=== PATIENT | male | born 1995 | race Caucasian/White ===

== ENCOUNTER 2020-07-03 12:15 | Inpatient (IN) | payer MEDICAID, OTHER ==
--- NOTE | 2020-07-03 12:30 | ED ---
General Adult HPI - General Stated complaint: EPS eval Time Seen by Provider: 07/03/20 12:15 Source: patient, RN notes reviewed, old records reviewed - History of Present Illness Initial comments: This is a 25-year-old male who presents emergency Department past medical history significant for smoking and anxiety. Patient states he just had a child was asked girlfriend and she will not let him see the child very often also is extremely upset. Patient states he took his mother's phone intact and the girlfriend that he was given overdosed to be doesn't get to see his kids. Patient states she's not really suicidal he wasn't really good overdosed but he stated that because he thought it might shock her enough that she might bring the kid around. Mother is filling out a petition the waiting room. Patient states he is not suicidal he has made no attempt today patient denies any drug use or alcohol use. Patient denies any physical complaints today. - Related Data Home Medications Medication Instructions Recorded Confirmed Albuterol Sulfate [Albuterol 1 puff PO RT-Q4H PRN 07/03/20 07/03/20 Sulfate Hfa] Beclomethasone Dipropionate [Qvar 1 puff INHALATION RT-DAILY 07/03/20 07/03/20 40 mcg Redihaler] Montelukast [Singulair] 10 mg PO DAILY 07/03/20 07/03/20 Allergies Allergy/AdvReac Type Severity Reaction Status Date / Time No Known Allergies Allergy Verified 07/03/20 12:58 Review of Systems ROS Statement: Those systems with pertinent positive or pertinent negative responses have been documented in the HPI. ROS Other: All systems not noted in ROS Statement are negative. Past Medical History Past Medical History: No Reported History History of Any Multi-Drug Resistant Organisms: None Reported Past Surgical History: Orthopedic Surgery Past Psychological History: ADD/ADHD, Anxiety, Bipolar, Depression Past Alcohol Use History: None Reported Past Drug Use History: Marijuana General Exam - General Exam Comments Initial Comments: GENERAL: Patient is well-developed and well-nourished. Patient is nontoxic and well-hydrated and is in no acute distress. ENT: Neck is soft and supple. No significant lymphadenopathy is noted. Neck has full range of motion without eliciting any pain. EYES: The sclera were anicteric and conjunctiva were pink and moist. Extraocular movements were intact and pupils were equal round and reactive to light. Eyelids were unremarkable. PULMONARY: Unlabored respirations. Good breath sounds bilaterally. No audible rales rhonchi or wheezing was noted. CARDIOVASCULAR: There is a regular rate and rhythm without any murmurs gallops or rubs. ABDOMEN: Soft and nontender with normal bowel sounds. SKIN: Skin is clear with no lesions or rashes and otherwise unremarkable. NEUROLOGIC: Patient is alert and oriented x3. Cranial nerves II through XII are grossly intact. Motor and sensory are also intact. Normal speech, volume and content. Symmetrical smile MUSCULOSKELETAL: Normal extremities with adequate strength and full range of motion. LYMPHATICS: No significant lymphadenopathy is noted PSYCHIATRIC: Normal psychiatric evaluation. Patient denies suicidal or homicidal ideations. Course Vital Signs 07/03/20 12:24 Temperature 98.2 F Pulse Rate 110 H Respiratory 18 Rate Blood Pressure 142/94 O2 Sat by Pulse 96 Oximetry Medical Decision Making - Medical Decision Making The psychiatric nurse evaluated the patient and determined the patient needed to be admitted I filled out a clinical certification for the person's admission. Disposition Clinical Impression: Depression, Suicide attempt Disposition: ADMITTED IP TO THIS HOSP Referrals: Kasia Wilkerson MD [Primary Care Provider] - 1-2 days Time of Disposition: 15:35
[2020-07-03 15:52] LABS: Amphetamine Screen,Urine Detected (NotDetected); Barbiturate Screen,Urine Not Detected (NotDetected); Benzodiazepines Screen,Urine Not Detected (NotDetected); Cocaine Screen,Urine Not Detected (NotDetected); Methadone Screen, Urine Not Detected (NotDetected); Opiate Screen,Urine Detected (NotDetected); Oxycodone Screen, Urine Not Detected (NotDetected); Phencyclidine Screen,Urine Not Detected (NotDetected); Tricyclic Antidepressant,Urine Not Detected (NotDetected); Urn Cannabinoid Scrn Not Detected (NotDetected)
[2020-07-03] MEDS ORDERED: ALBUTEROL INHALER 60 PUFF/8 GM INHALER (MHU) INHALATION PRN (18:27)
[2020-07-03] MEDS ORDERED: MAGNESIUM HYDROXIDE 2,400 MG/10 ML CUP PO PRN (18:29)
[2020-07-03] MEDS ORDERED: MAG HYDROX/AL HYDROX/SIMETH 30 ML CUP PO PRN (18:29)
[2020-07-03] MEDS ORDERED: ACETAMINOPHEN TAB 325 MG TAB PO PRN (18:29)
[2020-07-03] MEDS ORDERED: LORazepam 1 MG TAB PO PRN (18:35)
[2020-07-03] MEDS ORDERED: ZIPRASIDONE 20 MG VIAL IM PRN (18:35)
[2020-07-03] MEDS ORDERED: LORazepam 2 MG/ML INJ IM PRN (18:41)
[2020-07-03] MEDS: NICOTINE 14MG/24HR PATCH TRANSDERM SCH (19:10)
[2020-07-04 00:49] VITALS: RESP 16
[2020-07-04] MEDS: NICOTINE 14MG/24HR PATCH TRANSDERM SCH (09:33)
[2020-07-04] MEDS: FLUTICASONE 44 MCG INHALATION SCH (09:33)
[2020-07-04] MEDS: MONTELUKAST 10 MG TAB PO SCH (09:34)
[2020-07-04 10:23] LABS: Basophils # (A) 0.1 k/uL (0-0.2); Basophils % (A) 1 %; Eosinophils # (A) 0.2 k/uL (0-0.7); Eosinophils % (A) 3 %; HCT 43.9 % (39.0-53.0); HGB 14.2 gm/dL (13.0-17.5); Lymphocytes # (A) 2.6 k/uL (1.0-4.8); Lymphocytes % (A) 33 %; MCH 29.9 pg (25.0-35.0); MCHC 32.3 g/dL (31.0-37.0); MCV 92.5 fL (80.0-100.0); Mean Platelet Volume 7.3; Monocytes # (A) 0.7 k/uL (0-1.0); Monocytes % (A) 9 %; Neutrophils # (A) 4.3 k/uL (1.3-7.7); Neutrophils % (A) 53 %; Platelet Count 228 k/uL (150-450); RBC 4.74 m/uL (4.30-5.90); RDW 12.5 % (11.5-15.5); WBC 8.1 k/uL (3.8-10.6)
[2020-07-04 10:26] LABS: Cholesterol 123 mg/dL (<200); HDL Cholesterol 24 mg/dL (40-60); LDL Cholesterol,Calculated 77 mg/dL (0-99); Triglycerides 109 mg/dL (<150)
[2020-07-04 10:47] LABS: ALT 15 U/L (4-49); AST 21 U/L (17-59); African American GFR (CKD) >90 (>60 ml/min/1.73 sqM); Albumin 4.3 g/dL (3.5-5.0); Alkaline Phosphatase 76 U/L (38-126); Anion Gap 10 mmol/L; Blood Urea Nitrogen 10 mg/dL (9-20); Calcium 9.3 mg/dL (8.4-10.2); Carbon Dioxide 27 mmol/L (22-30); Chloride 100 mmol/L (98-107); Glucose 171 mg/dL (74-99); Non-African American GFR(CKD) >90 (>60 ml/min/1.73 sqM); Potassium 3.8 mmol/L (3.5-5.1); Sodium 137 mmol/L (137-145); Total Bilirubin 0.7 mg/dL (0.2-1.3); Total Protein 6.7 g/dL (6.3-8.2)
--- NOTE | 2020-07-04 14:25 | P.HP ---
Psychiatric H&P - . H&P Date: 07/04/20 History & Physical: Allergies Allergy/AdvReac Type Severity Reaction Status Date / Time No Known Allergies Allergy Verified 07/03/20 12:58 Vital Signs Temp 99.0 F 07/04/20 00:48 Pulse 106 H 07/04/20 00:48 Resp 16 07/04/20 00:48 BP 108/56 07/04/20 00:48 Pulse Ox 96 07/03/20 12:24 Intake & Output 07/03/20 07/04/20 07/04/20 18:59 06:59 18:59 Weight 72.575 kg Laboratory Last Values WBC 8.1 k/uL (3.8-10.6) 07/04/20 09:27 RBC 4.74 m/uL (4.30-5.90) 07/04/20 09:27 Hgb 14.2 gm/dL (13.0-17.5) 07/04/20 09:27 Hct 43.9 % (39.0-53.0) 07/04/20 09:27 MCV 92.5 fL (80.0-100.0) 07/04/20 09:27 MCH 29.9 pg (25.0-35.0) 07/04/20 09:27 MCHC 32.3 g/dL (31.0-37.0) 07/04/20 09:27 RDW 12.5 % (11.5-15.5) 07/04/20 09:27 Plt Count 228 k/uL (150-450) 07/04/20 09:27 Neutrophils % 53 % 07/04/20 09:27 Lymphocytes % 33 % 07/04/20 09:27 Monocytes % 9 % 07/04/20 09:27 Eosinophils % 3 % 07/04/20 09:27 Basophils % 1 % 07/04/20 09:27 Neutrophils # 4.3 k/uL (1.3-7.7) 07/04/20 09:27 Lymphocytes # 2.6 k/uL (1.0-4.8) 07/04/20 09:27 Monocytes # 0.7 k/uL (0-1.0) 07/04/20 09:27 Eosinophils # 0.2 k/uL (0-0.7) 07/04/20 09:27 Basophils # 0.1 k/uL (0-0.2) 07/04/20 09:27 Sodium 137 mmol/L (137-145) 07/04/20 09: Potassium 3.8 mmol/L (3.5-5.1) 07/04/20 09: Chloride 100 mmol/L (98-107) 07/04/20 09: Carbon Dioxide 27 mmol/L (22-30) 07/04/20: Anion Gap 10 mmol/L 07/04/20:27 BUN 10 mg/dL (9-20) 07/04/20 09: Creatinine 0.80 mg/dL (0.66-1.25) 07/04/20 09: Est GFR (CKD-EPI)AfAm >90 (>60 ml/min/1.73 sqM) 07/04/20: Est GFR (CKD-EPI)NonAf >90 (>60 ml/min/1.73 sqM) 07/04/20 09: Glucose 171 mg/dL (74-99) H 07/04/20 09: Calcium 9.3 mg/dL (8.4-10.2) 07/04/20 09: Total Bilirubin 0.7 mg/dL (0.2-1.3) 07/04/20: AST 21 U/L (17-59) 07/04/20: ALT 15 U/L (4-49) 07/04/20 09: Alkaline Phosphatase 76 U/L (38-126) 07/04/20 09: Total Protein 6.7 g/dL (6.3-8.2) 07/04/20 09: Albumin 4.3 g/dL (3.5-5.0) 07/04/20 09: Triglycerides 109 mg/dL (<150) 07/04/20 09: Cholesterol 123 mg/dL (<200) 07/04/20: LDL Cholesterol, Calc 77 mg/dL (0-99) 07/04/20: HDL Cholesterol 24 mg/dL (40-60) L 07/04/20 09: TSH 0.273 mIU/L (0.465-4.680) L 07/04/20: Urine Opiates Screen Detected (NotDetected) H 07/03/20 15:14 Ur Oxycodone Screen Not Detected (NotDetected) 07/03/20 15:14 Urine Methadone Screen Not Detected (NotDetected) 07/03/20 15:14 Ur Propoxyphene Screen Not Detected (NotDetected) 07/03/20 15:14 Ur Barbiturates Screen Not Detected (NotDetected) 07/03/20 15:14 U Tricyclic Antidepress Not Detected (NotDetected) 07/03/20 15:14 Ur Phencyclidine Scrn Not Detected (NotDetected) 07/03/20 15:14 Ur Amphetamines Screen Detected (NotDetected) H 07/03/20 15:14 U Methamphetamines Scrn Detected (NotDetected) H 07/03/20 15:14 U Benzodiazepines Scrn Not Detected (NotDetected) 07/03/20 15:14 Urine Cocaine Screen Not Detected (NotDetected) 07/03/20 15:14 U Marijuana (THC) Screen Not Detected (NotDetected) 07/03/20 15:14 07/04/20 14:00 IDENTIFYING DATA: Patient is a 25-year-old male who currently lives with his mother in a house with siblings and is single and currently has a 2-month-old child with his girlfriend. 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 HPI: Patient presented to the hospital yesterday on a petition by patient's mother who stated that patient was "upset yelling and crying" and also stated that he had "tried to overdose but was not successful and stated that he was going to kill himself and we would find a note". Patient apparently told the ER that he had threatened to overdose and admitted that he was "trying to shock her" into letting him see his child. He apparently has been sober since August however had relapsed recently and his UDS was positive for methamphetamines and opiates. Patient was seen today in his room and claimed to be "tired" and states that he was withdrawing from heroin. He appears to have poor hygiene and grooming today. He explained the situation that his girlfriend called the police on him and that he had no intent of harming himself and wanted to see his child. He states that "it's all a joke I'm in the hospital because of a joke". He minimizes his depression and his symptoms and states that he is doing "all right". He admits to anxiety at times and claims that he slept excessively last night however usually does not sleep well. He claims that he relapsed on heroin using 1 pack 2 days ago and had been sober for 9 months. He states that he also used methamphetamine "a small bed" at that time to "wake myself up after using too much heroin". Patient denies any suicidal or homicidal ideations intent or plan. At this time patient denies any auditory or visual hallucinations. Patient denies any flight of ideas racing thoughts and increased in goal directed behavior. Patient admits to using recreational drugs as noted above and smokes cigarettes. PAST PSYCHIATRIC HISTORY: Patient states that he has a history of depression. Patient denies being on any psychiatric medications. Patient denies any previous psychiatric hospitalizations. Patient states that he used to see a psychiatrist and counselor as a child because "it was court ordered". Patient had an appointment with [facility] yesterday however did not show for the appointment. Patient denies any history of suicide attempts in the past. PMH: Asthma ALLERGIES: as per EMR CHEMICAL DEPENDENCY HISTORY: as per HPI FAMILY PSYCHIATRIC/SUBSTANCE USE HISTORY: denies SOCIAL HISTORY: Patient was born and raised in [place] and claims that he now lives in [place]. 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 He states that he lives with his mother and siblings and is single and has a 2-month-old child with his girlfriend. MENTAL STATUS EXAM: General Appearance: Patient appears to be stated age is alert, irritable and uncooperative/evasive. Patient appears to have poor hygiene and grooming. Behavior: Patient is seated without any agitated behavior. Guarded/evasive. Speech: Patient's speech is fluent and nonpressured. [place]. Mood/Affect: Patient reports their mood is "ok", affect is incongruent and constricted. Suicidality/Homicidality: Patient denies having any homicidal ideation intent or plan. Denies any suicidal ideations intent or plan Perceptions: Patient denies any visual hallucinations and denies any auditory hallucinations Though content/process: There is no evidence of any delusional thought content and thought process is linear and goal-directed. Minimizing his symptoms and situation. [place] Memory and concentration: AOX3, grossly intact for the purposes of this session. Can spell "WORLD" backwards Judgment and insight: poor/impulsive STRENGTHS/WEAKNESSES: strength is that patient is resilient. Weakness is that patient has poor judgment and is impulsive INTELLECT: average IMPRESSIONS: Major depressive disorder, without psychotic features Opiate abuse Methamphetamine abuse Nicotine dependence PLAN: -Patient is admitted under involuntary status to [facility] for stabilization of psyc hiatric symptoms and safety. Patient signed medication consent and is placed in patient's chart. A second certification was completed and along with petition will be filed for court. -Medications : Will start patient on Zoloft 50 mg daily for mood/anxiety, trazodone 50 mg daily at bedtime for insomnia/mood. -Ativan and Geodon PRN for agitation/aggression -Patient was counselled on substance abuse and desired to cut back on use. -Patient was informed of the risks, benefits and side effects of the medication and patient verbally consented to taking the medications. Patient signed med consent form and was placed in chart. -Internal Medicine consult to perform medical evaluation and physical. -NRT - nicotine patch -SW on board for discharge planning. Encourage patient to participate in groups to work on coping skills. Spoke with patient about rehab however patient declined rehab or any other substance treatment options 07/04/20 14:21 07/04/20 14:25
[2020-07-04] MEDS: SERTRALINE 50 MG TAB PO SCH (14:34)
[2020-07-04 20:11] LABS: Hemoglobin A1C 5.6 % (4.0-6.0)
[2020-07-04] MEDS: traZODone HCL 50 MG TAB PO SCH (21:49)
--- NOTE | 2020-07-05 02:01 | P.MDCNMH ---
History of Present Illness H&P Date: 07/04/20 Chief Complaint: Suicidal ideation Patient is a 25-year-old male with a known history of ADD/ADHD, anxiety/bipolar disorder and depression and marijuana use and history of asthma presents to ER due to anxiety and overdose. Patient is upset that his girlfriend will not let him to see the child very often. Patient does not want really commit suicide but thought it might shock her enough that she might bring the kids around. Patient was petitioned by her mother. Otherwise patient denied any complaints of chest pain or shortness of breath. No nausea vomiting abdominal pain or diarrhea. No dysuria or hematuria. Laboratory data showed TSH level is 0.273 free T4 level is pending. UDS is positive for opiates and amphetamines and methamphetamine. Patient has been afebrile. Patient was tachycardic on admission. Review of Systems Constitutional: Patient denies any fever or chills . No generalized weakness or weight loss. Abdomen: Patient denied nausea vomiting and diarrhea and abdominal pain. Cardiovascular: Patient denies any chest pain or short of breath no palpitations. Respiratory: patient denied any cough is from production. No shortness of breath Neurologic: Patient denied any numbness or tingling headache. Musculoskeletal: Patient denies any complaints of joint swelling or deformity. Skin: Negative Psychiatric: Negative Endocrine: No heat or cold intolerance. No recent weight gain. Genitourinary: No dysuria or hematuria. All other 14 point ROS negative except the above Past Medical History Past Medical History: No Reported History History of Any Multi-Drug Resistant Organisms: None Reported Past Surgical History: Orthopedic Surgery Past Psychological History: ADD/ADHD, Anxiety, Bipolar, Depression Past Alcohol Use History: None Reported Past Drug Use History: Marijuana Medications and Allergies Home Medications Medication Instructions Recorded Confirmed Type Albuterol Sulfate [Albuterol 1 puff PO RT-Q4H PRN 07/03/20 07/03/20 History Sulfate Hfa] Beclomethasone Dipropionate [Qvar 1 puff INHALATION RT-DAILY 07/03/20 07/03/20 History 40 mcg Redihaler] Montelukast [Singulair] 10 mg PO DAILY 07/03/20 07/03/20 History Allergies Allergy/AdvReac Type Severity Reaction Status Date / Time No Known Allergies Allergy Verified 07/03/20 12:58 Physical Exam Vitals: Vital Signs Temp Pulse Resp BP 07/04/20 00:48 99.0 F 106 H 16 108/56 07/03/20 19:01 98.8 F 100 20 117/63 PHYSICAL EXAMINATION: Patient is lying in the bed comfortably, no acute distress, awake alert and oriented.. HEENT: Normocephalic. Neck is supple. Pupils reactive. Nostrils clear. Oral cavity is moist. Ears reveal no drainage. Neck reveals no JVD, carotid bruits, or thyromegaly. CHEST EXAMINATION: Trachea is central. Symmetrical expansion. Lung talamantes clear to auscultation and percussion. CARDIAC: Normal S1, S2 with no gallops. No murmurs ABDOMEN: Soft. Bowel sounds normal. No organomegaly. No abdominal bruits. Extremities: reveal no edema. No clubbing or cyanosis Neurologically awake, alert, oriented x3 with well-coordinated movements. No focal deficits noted Skin: No rash or skin lesions. Psychiatric: Coperative. Nonsuicidal Musculoskeletal: No joint swelling or deformity. Normal range of motion. Cranial Nerve Examination - Cranial Nerves Cranial Nerve I- Olfactory: Intact Cranial Nerve II- Optic: Intact Cranial Nerve III- Oculomotor: Intact Cranial Nerve IV- Trochlear: Intact Cranial Nerve V- Trigeminal: Intact Cranial Nerve - Abducens: Intact Cranial Nerve VII- Facial: Intact Cranial Nerve VIII- Auditory: Intact Cranial Nerve IX- Glossopharyngeal: Intact Cranial Nerve X- Vagus: Intact Cranial Nerve XI- Accessory: Intact Cranial Nerve XII- Hypoglossal: Intact Results CBC & Chem 7: 07/04/20 09:27 07/04/20 09:27 Labs: Abnormal Lab Results - Last 24 Hours (Table) 07/04/20 Range/Units 09:27 Glucose 171 H (74-99) mg/dL HDL Cholesterol 24 L (40-60) mg/dL TSH 0.273 L (0.465-4.680) mIU/L Assessment and Plan Assessment: Acute suicidal ideation Polysubstance abuse ADD/ADHD Anxiety/depression and bipolar disorder History of marijuana use Asthma not in exacerbation Plan: Patient will be continued on current psychiatric medications and management. Breathing treatments as needed. Monitor for withdrawal symptoms. Patient has been counseled extensively. Further recommendations based on clinical course. Thank you for your consult.
[2020-07-05 05:58] LABS: T4, Free (Free Thyroxine) 1.28 ng/dL (0.78-2.19)
[2020-07-05] MEDS: FLUTICASONE 44 MCG INHALATION SCH (10:07)
[2020-07-05] MEDS: MONTELUKAST 10 MG TAB PO SCH (10:08)
[2020-07-05] MEDS: SERTRALINE 50 MG TAB PO SCH (10:08)
[2020-07-05] MEDS: NICOTINE 14MG/24HR PATCH TRANSDERM SCH (10:08)
--- NOTE | 2020-07-05 13:01 | P.PN ---
Progress Note - Text Progress Note Date: 07/05/20 Interval History: Patient was seen laying down in his bed today and was directable and agreeable to speak with curriculum writer in the office. He shouldn't appear to have mildly improved hygiene and grooming today. He appears to have a mild improvement in his affect and was more cooperative with curriculum writer today. He continues to be guarded and concrete in his answers. He states that he has not gone to many groups so far however was encouraged to do so. He states that he's feeling "fine". He claims that he will be speaking with his girlfriend and mother over the phone today to update them on his care. He mentioned that he would be willing to go to rehab and will be given the number to call today. He states that he does not have any anxiety today. He claims that he has mild withdrawal symptoms from his opiate use however was vague about what they were. He states he was able to sleep better last night approximately 6-7 hours and has a fair appetite today. At this time patient denies any suicidal or homical ideations, intent or plan. Patient denies any auditory, visual hallucinations and denies any paranoia or delusions. Patient denies any side effects from the medications and has been compliant with meds. Mental Status Exam: General Appearance: Patient appears to be stated age is alert, irritable and uncooperative/evasive. Patient appears to have poor hygiene and grooming. Behavior: Patient is seated without any agitated behavior. Guarded/evasive. Speech: Patient's speech is fluent and nonpressured. [place]. Mood/Affect: Patient reports their mood is "ok", affect is incongruent and constricted. Suicidality/Homicidality: Patient denies having any homicidal ideation intent or plan. Denies any suicidal ideations intent or plan Perceptions: Patient denies any visual hallucinations and denies any auditory hallucinations Though content/process: There is no evidence of any delusional thought content and thought process is linear and goal-directed. Minimizing his symptoms and situation. [place] Memory and concentration: AOX3, grossly intact for the purposes of this session Judgment and insight: poor/impulsive, improving midly Assessment Major depressive disorder, without psychotic features Opiate abuse Methamphetamine abuse Nicotine dependence Plan: -Patient continues to meet criteria for inpatient psychiatric admission for symptom stabilization and safety. Currently awaiting deferral and court date. -Medications: Continue with Zoloft 50 mg daily for mood/anxiety, continue with trazodone 50 mg nightly for insomnia/mood. -When necessary Ativan and Geodon for agitation/aggression. -NRT - nicotine patch -SW on board for discharge planning. Encouraged the patient to participate in milieu. Spoke with patient again today about rehab and patient is willing to go at this time and will be given number by older adult social work specialist to call the access line. Currently awaiting deferral and court date. Likely discharge in 1-2 days.
[2020-07-05] MEDS: traZODone HCL 50 MG TAB PO SCH (21:03)
[2020-07-06 01:26] VITALS: BP 130/75; PULSE 91; TEMP 98.6
[2020-07-06] MEDS: NICOTINE 14MG/24HR PATCH TRANSDERM SCH (09:59)
[2020-07-06] MEDS: SERTRALINE 50 MG TAB PO SCH (09:59)
[2020-07-06] MEDS: MONTELUKAST 10 MG TAB PO SCH (09:59)
--- NOTE | 2020-07-06 11:37 | P.PN ---
Progress Note - Text Progress Note Date: 07/06/20 Interval History: Patient was seen laying down in his bed today and was directable and agreeable to speak with mortgage or loan underwriter in the office. He appears to have mildly improved hygiene and grooming today. He continues to have superficial insight and judgment and denied any overly complaints. Patient was asking about possible discharge today back home. He claims that he has been taking his medications and states that it is helping his mood. He continues to be guarded and concrete in his answers. He states that he has gone to some groups however was not able to elaborate much on them. He states that he's feeling "ok today". He mentioned that he receive the number for the access line from the social security specialist however states that he lost a number and didn't call however was willing to take the number once again today and call. He states that he does not have any anxiety today. He states he was able to sleep better last night approximately 6-7 hours and has a fair appetite today. At this time patient denies any suicidal or homical ideations, intent or plan. Patient denies any auditory, visual hallucinations and denies any paranoia or delusions. Patient denies any side effects from the medications and has been compliant with meds. Mental Status Exam: General Appearance: Patient appears to be stated age is alert, more directable today and more cooperative. Patient appears to have improving hygiene and grooming. Behavior: Patient is seated without any agitated behavior. Guarded/evasive, improving mildly Speech: Patient's speech is fluent and nonpressured. [place]. Mood/Affect: Patient reports their mood is "ok today", affect is congruent and constricted. Suicidality/Homicidality: Patient denies having any homicidal ideation intent or plan. Denies any suicidal ideations intent or plan Perceptions: Patient denies any visual hallucinations and denies any auditory hallucinations Though content/process: There is no evidence of any delusional thought content and thought process is linear and goal-directed. [place], superficial at times. Memory and concentration: AOX3, grossly intact for the purposes of this session Judgment and insight: poor, improving midly Assessment Major depressive disorder, without psychotic features Opiate abuse Methamphetamine abuse Nicotine dependence Plan: -Patient continues to meet criteria for inpatient psychiatric admission for symptom stabilization and safety. Patient signed deferral for court. -Medications: Continue with Zoloft 50 mg daily for mood/anxiety, continue with trazodone 50 mg nightly for insomnia/mood. -When necessary Ativan and Geodon for agitation/aggression. -NRT - nicotine patch -SW on board for discharge planning. Encouraged the patient to participate in milieu. agricultural service worker spoke with patient's mother on the phone who states that she is not willing to take patient back home today upon discharge and that she needs to go to rehab before coming back to the house. Patient will be given the number for the access line once again today for inpatient rehab. Patient signed deferral for court.
--- NOTE | 2020-07-06 13:00 | P.DS ---
Providers Date of admission: 07/03/20 18:17 Expected date of discharge: 07/06/20 Attending physician: Ever Ross MD Consults: 07/03/20 18:35 Consult Physician Routine Consulting Provider: Valente Ervin Consult Reason/Comments: H&P and medical Do you want consulting provider notified?: Yes Primary care physician: Kasia Wilkerson - Discharge Diagnosis(es) (1) Major depressive disorder without psychotic features Current Visit: Yes Status: Acute Priority: High (2) Opiate abuse, episodic Current Visit: Yes Status: Acute Priority: Medium (3) Methamphetamine abuse Current Visit: Yes Status: Acute Priority: Medium (4) Nicotine dependence Current Visit: Yes Status: Acute Priority: Low Hospital Course: Admission HPI: Patient is a 25-year-old male who currently lives with his mother in a house with siblings and is single and currently has a 2-month-old child with his girlfriend. 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 Patient presented to the hospital yesterday on a petition by patient's mother who stated that patient was "upset yelling and crying" and also stated that he had "tried to overdose but was not successful and stated that he was going to kill himself and we would find a note". Patient apparently told the ER that he had threatened to overdose and admitted that he was "trying to shock her" into letting him see his child. He apparently has been sober since August however had relapsed recently and his UDS was positive for methamphetamines and opiates. Patient was seen today in his room and claimed to be "tired" and states that he was withdrawing from heroin. He appears to have poor hygiene and grooming today. He explained the situation that his girlfriend called the police on him and that he had no intent of harming himself and wanted to see his child. He states that "it's all a joke I'm in the hospital because of a joke". He minimizes his depression and his symptoms and states that he is doing "all right". He admits to anxiety at times and claims that he slept excessively last night however usually does not sleep well. He claims that he relapsed on heroin using 1 pack 2 days ago and had been sober for 9 months. He states that he also used methamphetamine "a small bed" at that time to "wake myself up after using too much heroin". Patient denies any suicidal or homicidal ideations intent or plan. At this time patient denies any auditory or visual hallucinations. Patient denies any flight of ideas racing thoughts and increased in goal directed behavior. Patient admits to using recreational drugs as noted above and smokes cigarettes. Hospital course: Upon admission to the unit patient was initially irritable and depressed and had poor hygiene and grooming. Patient was involuntary on a petition and certificate a second certificate was completed and patient ended up deferring court. Patient was however directable and agreeable to commence treatment. Patient got along well with other patients on the unit and followed unit protocol. Patient was compliant with the medications and denied any side effects throughout hospital course. Patient was started on Zoloft 50 mg daily for mood/anxiety and also started on trazodone 50 mg daily at bedtime for insomnia/mood. Patient spoke of his stressors and engaged in therapy both group and individual. Patient was also seen by medical team for history and physical exam. Throughout the course of the hospitalization patient gradually improved with regards to mood, anxiety, sleep and became more future oriented with improved insight and judgment. On the day of discharge patient denied any suicidal or homicidal ideations intent or plan denied any auditory or visual hallucinations. Patient endorsed wanting to live for his sobriety and his family. The patient denied any access to guns or weapons. Patient denied any paranoia and did not endorse any delusions. Patient does have a significant history of substance abuse and was counseled on abstaining from all substances including alcohol and marijuana. Patient was able to call the access line for rehab and ended up being accepted at [facility] due to him being on probation. Patient was also counseled on the medications and need for regular compliance and was encouraged to follow-up with their outpatient appointment for mental health and also for primary care. Prior to discharge a family meeting will be arranged by social service liaison to answer any questions and ensure safety upon discharge. Mental status exam: General Appearance: Patient appears to be stated age is alert, pleasant, and cooperative. Patient is in no acute distress and has fair hygiene and grooming Behavior: Patient is calmly seated without any agitated behavior. More cooperative today. Speech: Patient's speech is fluent and nonpressured. Mood/Affect: Patient reports their mood is "better", affect is congruent and euthymic. Suicidality/Homicidality: Patient denies having any suicidal or homicidal ideation intent or plan. Perceptions: Patient denies any auditory or visual hallucinations. Though content/process: There is no evidence of any delusional thought content and thought process is linear and goal-directed. more future oriented and spoke about his sobriety and getting back to work. Memory and concentration: AOX3, grossly intact for the purposes of this session. Can spell "WORLD" backwards correctly. Judgment and insight: Improved with guarded prognosis Impression: Major depressive disorder, without psychotic features Opiate abuse Methamphetamine abuse Nicotine dependence Plan: -Continue with discharge today as patient has improved and stabilized psychiatrically and is not currently an imminent threat to himself and/or others. Patient will remain at chronically elevated risk for harm to self and/or others due to his impulsivity and polysubstance abuse. -Continue medications: Continue with Zoloft 50 mg daily for mood/anxiety, trazodone 50 mg nightly for insomnia/mood. -Patient was counseled on the need for medication compliance and appropriate follow-up at mental health and also primary care for medical issues. Patient verbalized understanding and agreed. -Social work to arrange for and conduct family meeting to ensure safety upon discharge and answer any questions/concerns. Social work also to arrange for patients follow up appointments with [facility] for psychiatric care along with follow up with primary care provider. -Patient counseled on abstaining from recreational drugs and marijuana and alcohol. Was informed/educated on the adverse effects on their physical and mental health. Patient verbally agreed and understood. Patient will be going to [facility] upon dischrage three-quarter house as patient's mother will not allow him to come back to the house without going through rehab or drug treatment. -Patient was instructed to return to the hospital or seek immediate medical care if their psychiatric or medical symptoms do worsen or reoccur. Allergies Allergy/AdvReac Type Severity Reaction Status Date / Time No Known Allergies Allergy Verified 07/03/20 12:58 Laboratory Results WBC 8.1 k/uL (3.8-10.6) 07/04/20 09:27 RBC 4.74 m/uL (4.30-5.90) 07/04/20 09:27 Hgb 14.2 gm/dL (13.0-17.5) 07/04/20 09:27 Hct 43.9 % (39.0-53.0) 07/04/20: MCV 92.5 fL (80.0-100.0) 07/04/20: MCH 29.9 pg (25.0-35.0) 07/04/20: MCHC 32.3 g/dL (31.0-37.0) 07/04/20: RDW 12.5 % (11.5-15.5) 07/04/20: Plt Count 228 k/uL (150-450) 07/04/20: Neutrophils % 53 % 07/04/20: Lymphocytes % 33 % 07/04/20: Monocytes % 9 % 07/04/20: Eosinophils % 3 % 07/04/20: Basophils % 1 % 07/04/20: Neutrophils # 4.3 k/uL (1.3-7.7) 07/04/20: Lymphocytes # 2.6 k/uL (1.0-4.8) 07/04/20 09: Monocytes # 0.7 k/uL (0-1.0) 07/04/20 09: Eosinophils # 0.2 k/uL (0-0.7) 07/04/20: Basophils # 0.1 k/uL (0-0.2) 07/04/20 09: Sodium 137 mmol/L (137-145) 07/04/20 09: Potassium 3.8 mmol/L (3.5-5.1) 07/04/20: Chloride 100 mmol/L (98-107) 07/04/20: Carbon Dioxide 27 mmol/L (22-30) 07/04/20: Anion Gap 10 mmol/L 07/04/20: BUN 10 mg/dL (9-20) 07/04/20 09: Creatinine 0.80 mg/dL (0.66-1.25) 07/04/20 09: Est GFR (CKD-EPI)AfAm >90 (>60 ml/min/1.73 sqM) 07/04/20 09: Est GFR (CKD-EPI)NonAf >90 (>60 ml/min/1.73 sqM) 07/04/20 09: Glucose 171 mg/dL (74-99) H 07/04/20 09: Estimated Ave Glu mg/dL 114 07/04/20 09: Hemoglobin A1c 5.6 % (4.0-6.0) 07/04/20: Calcium 9.3 mg/dL (8.4-10.2) 07/04/20: Total Bilirubin 0.7 mg/dL (0.2-1.3) 07/04/20: AST 21 U/L (17-59) 07/04/20: ALT 15 U/L (4-49) 07/04/20: Alkaline Phosphatase 76 U/L (38-126) 07/04/20: Total Protein 6.7 g/dL (6.3-8.2) 07/04/20: Albumin 4.3 g/dL (3.5-5.0) 07/04/20: Triglycerides 109 mg/dL (<150) 07/04/20: Cholesterol 123 mg/dL (<200) 07/04/20: LDL Cholesterol, Calc 77 mg/dL (0-99) 07/04/20: HDL Cholesterol 24 mg/dL (40-60) L 07/04/20: TSH 0.273 mIU/L (0.465-4.680) L 07/04/20: Free T4 1.28 ng/dL (0.78-2.19) 07/04/20: Free T3 pg/mL 4.5 pg/ml (2.8-5.3) 07/04/20 09:27 Urine Opiates Screen Detected (NotDetected) H 07/03/20 15:14 Ur Oxycodone Screen Not Detected (NotDetected) 07/03/20 15:14 Urine Methadone Screen Not Detected (NotDetected) 07/03/20 15:14 Ur Propoxyphene Screen Not Detected (NotDetected) 07/03/20 15:14 Ur Barbiturates Screen Not Detected (NotDetected) 07/03/20 15:14 U Tricyclic Antidepress Not Detected (NotDetected) 07/03/20 15:14 Ur Phencyclidine Scrn Not Detected (NotDetected) 07/03/20 15:14 Ur Amphetamines Screen Detected (NotDetected) H 07/03/20 15:14 U Methamphetamines Scrn Detected (NotDetected) H 07/03/20 15:14 U Benzodiazepines Scrn Not Detected (NotDetected) 07/03/20 15:14 Urine Cocaine Screen Not Detected (NotDetected) 07/03/20 15:14 U Marijuana (THC) Screen Not Detected (NotDetected) 07/03/20 15:14 Vital Signs Temp 98.6 F 07/06/20 01:25 Pulse 91 07/06/20 01:25 Resp 16 07/06/20 01:25 BP 130/75 07/06/20 01:25 Pulse Ox 96 07/03/20 12:24 Patient Condition at Discharge: Stable Plan - Discharge Summary New Discharge Prescriptions: New traZODone HCL [Desyrel] 50 mg PO HS 30 Days tab Fluticasone Propionate 44 Mcg [Flovent 44 Mcg Inhaler (Mhu)] 1 puff INHALATION RT-DAILY #1 puff Nicotine 14Mg/24Hr Patch [Habitrol] 1 patch TRANSDERM DAILY 14 Days patch Montelukast [Singulair] 10 mg PO DAILY 30 Days tab Acetaminophen Tab [Tylenol] 650 mg PO Q4HR PRN tab PRN Reason: Pain/Discomfort Sertraline [Zoloft] 50 mg PO DAILY 30 Days tab Continue Montelukast [Singulair] 10 mg PO DAILY Albuterol Sulfate [Albuterol Sulfate Hfa] 1 puff PO RT-Q4H PRN PRN Reason: Shortness Of Breath Discontinued Beclomethasone Dipropionate [Qvar 40 mcg Redihaler] 1 puff INHALATION RT- DAILY Discharge Medication List Albuterol Sulfate [Albuterol Sulfate Hfa] 1 puff PO RT-Q4H PRN 07/03/20 [History] Montelukast [Singulair] 10 mg PO DAILY 07/03/20 [History] Acetaminophen Tab [Tylenol] 650 mg PO Q4HR PRN tab 07/06/20 [Rx] Fluticasone Propionate 44 Mcg [Flovent 44 Mcg Inhaler (Mhu)] 1 puff INHALATION RT-DAILY #1 puff 07/06/20 [Rx] Montelukast [Singulair] 10 mg PO DAILY 30 Days tab 07/06/20 [Rx] Nicotine 14Mg/24Hr Patch [Habitrol] 1 patch TRANSDERM DAILY 14 Days patch 07/06/20 [Rx] Sertraline [Zoloft] 50 mg PO DAILY 30 Days tab 07/06/20 [Rx] traZODone HCL [Desyrel] 50 mg PO HS 30 Days tab 07/06/20 [Rx] Follow up Appointment(s)/Referral(s): Kasia Wilkerson MD [Primary Care Provider] - 1-2 days Patient Instructions/Handouts: Suicide Prevention (DC) Discharge Disposition: OTHER INSTITUTION NOT DEFINED
== END 2020-07-06 13:50 | disposition home or self-care (01) | DRG 881 ==
LOC: EC 12:15 → 3MHU 18:17
PROVIDERS: ADMIT Psychiatry & Neurology Psychiatry; ATTEND Psychiatry & Neurology Psychiatry
DX: F32.9 Major depressive disorder, single episode, unspecified (principal); R45.851 Suicidal ideations; F11.10 Opioid abuse, uncomplicated; F15.10 Other stimulant abuse, uncomplicated; F90.9 Attention-deficit hyperactivity disorder, unspecified type; G47.00 Insomnia, unspecified; J45.909 Unspecified asthma, uncomplicated; F41.9 Anxiety disorder, unspecified; F17.210 Nicotine dependence, cigarettes, uncomplicated; Z79.51 Long term (current) use of inhaled steroids; Z79.899 Other long term (current) drug therapy; Z71.51 Drug abuse counseling and surveillance of drug abuser
CPT/HCPCS: 80053; 80061; 80306; 82075; 83036; 84439; 84443; 84481; 85025; 99285

== ENCOUNTER 2021-01-17 14:08 | Emergency (ER) | payer MEDICAID, OTHER ==
[2021-01-17 14:13] VITALS: RESP 18
[2021-01-17] MEDS ORDERED: SODIUM CHLORIDE 0.9% 1,000 ML IV STA (14:20)
[2021-01-17 14:50] LABS: Appearance,Urine Clear (Clear); Bilirubin,Urine Negative (Negative); Blood,Urine Negative (Negative); Color,Urine Light Yellow; Glucose,Urine (UA) 4+ (Negative); Ketones,Urine Negative (Negative); Leukocyte Esterase,Urine Negative (Negative); Nitrite,Urine Negative (Negative); Protein,Urine Negative (Negative); Specific Gravity,Urine 1.009 (1.001-1.035)
[2021-01-17 14:51] LABS: Basophils # (A) 0.1 k/uL (0-0.2); Basophils % (A) 1 %; Eosinophils # (A) 0.3 k/uL (0-0.7); Eosinophils % (A) 4 %; HCT 35.3 % (39.0-53.0); HGB 12.5 gm/dL (13.0-17.5); Lymphocytes # (A) 3.1 k/uL (1.0-4.8); Lymphocytes % (A) 40 %; MCHC 35.3 g/dL (31.0-37.0); MCV 87.7 fL (80.0-100.0); Monocytes # (A) 0.3 k/uL (0-1.0); Monocytes % (A) 5 %; Neutrophils # (A) 3.7 k/uL (1.3-7.7); Neutrophils % (A) 48 %; Platelet Count 141 k/uL (150-450); RBC 4.03 m/uL (4.30-5.90); RDW 12.3 % (11.5-15.5); WBC 7.7 k/uL (3.8-10.6)
[2021-01-17 15:07] LABS: ALT 22 U/L (4-49); AST 30 U/L (17-59); African American GFR (CKD) >90 (>60 ml/min/1.73 sqM); Albumin 3.5 g/dL (3.5-5.0); Alkaline Phosphatase 80 U/L (38-126); Amylase 45 U/L (30-110); Anion Gap 7 mmol/L; Blood Urea Nitrogen 12 mg/dL (9-20); Calcium 8.9 mg/dL (8.4-10.2); Carbon Dioxide 29 mmol/L (22-30); Chloride 99 mmol/L (98-107); Glucose 152 mg/dL (74-99); Lipase 121 U/L (23-300); Non-African American GFR(CKD) >90 (>60 ml/min/1.73 sqM); Potassium 3.1 mmol/L (3.5-5.1); Sodium 135 mmol/L (137-145); Total Bilirubin 0.4 mg/dL (0.2-1.3); Total Protein 5.8 g/dL (6.3-8.2)
[2021-01-17] MEDS ORDERED: HYDROmorphone 0.5 MG/0.5 ML SYRINGE IVP STA (15:25)
[2021-01-17] MEDS ORDERED: ONDANSETRON 4 MG/2 ML VIAL IVP STA (15:25)
[2021-01-17] MEDS ORDERED: POTASSIUM CHLORIDE ER 20 MEQ TAB.ER PO STA (15:55)
--- NOTE | 2021-01-17 16:15 | ED ---
Abdominal Pain HPI - General Chief Complaint: Abdominal Pain Stated Complaint: Abd pain Time Seen by Provider: 01/17/21 14:14 Source: patient, RN notes reviewed, old records reviewed Mode of arrival: ambulatory Limitations: no limitations - History of Present Illness Initial Comments: This is a 25-year-old male presents emergency Department with chief complaint of new-onset diabetes, abdominal pain. Patient states he lost 40 pounds last month or so. Patient states is generalized weak, having severe diarrhea so he presented to [facility]. Patient was admitted to ICU and was stepped onto the ICU to gynecological medical floor and was sent in prescriptions for his diabetes but states patient left it is not happy with the care. Patient states she was told he had some gallbladder issues but he was evaluated by a surgeon. Patient currently staying a snf house i was on Suboxone states he does not take it anymore. Patient denies any dysuria hematuria. Patient did have polydipsia polyuria prior to being treated. Patient had A1c of 12.6. - Related Data Home Medications Medication Instructions Recorded Confirmed Albuterol Sulfate [Albuterol 1 puff PO RT-Q4H PRN 07/03/20 07/03/20 Sulfate Hfa] Montelukast [Singulair] 10 mg PO DAILY 07/03/20 07/03/20 Previous Rx's Medication Instructions Recorded Acetaminophen Tab [Tylenol] 650 mg PO Q4HR PRN tab 07/06/20 Fluticasone Propionate 44 Mcg 1 puff INHALATION RT-DAILY #1 puff 07/06/20 [Flovent 44 Mcg Inhaler (Mhu)] Montelukast [Singulair] 10 mg PO DAILY 30 Days tab 07/06/20 Nicotine 14Mg/24Hr Patch [Habitrol] 1 patch TRANSDERM DAILY 14 Days 07/06/20 patch Sertraline [Zoloft] 50 mg PO DAILY 30 Days tab 07/06/20 traZODone HCL [Desyrel] 50 mg PO HS 30 Days tab 07/06/20 Allergies Allergy/AdvReac Type Severity Reaction Status Date / Time No Known Allergies Allergy Verified 01/17/21 14:12 Review of Systems ROS Statement: Those systems with pertinent positive or pertinent negative responses have been documented in the HPI. ROS Other: All systems not noted in ROS Statement are negative. Past Medical History Past Medical History: No Reported History History of Any Multi-Drug Resistant Organisms: None Reported Past Surgical History: Orthopedic Surgery Past Psychological History: ADD/ADHD, Anxiety, Bipolar, Depression Past Alcohol Use History: None Reported Past Drug Use History: Marijuana General Exam Limitations: no limitations General appearance: alert, in no apparent distress Head exam: Present: atraumatic, normocephalic, normal inspection Eye exam: Present: normal appearance, PERRL, EOMI. Absent: scleral icterus, conjunctival injection, periorbital swelling ENT exam: Present: normal exam, normal oropharynx, mucous membranes moist, TM's normal bilaterally Neck exam: Present: normal inspection, full ROM. Absent: tenderness, meningismus, lymphadenopathy Respiratory exam: Present: normal lung sounds bilaterally. Absent: respiratory distress, wheezes, rales, rhonchi, stridor Cardiovascular Exam: Present: regular rate, normal rhythm, normal heart sounds. Absent: systolic murmur, diastolic murmur, rubs, gallop, clicks GI/Abdominal exam: Present: soft, tenderness (Moderate upper abdominal tenderness), normal bowel sounds. Absent: distended, guarding, rebound, rigid Back exam: Absent: CVA tenderness (R), CVA tenderness (L) Neurological exam: Present: alert, oriented X3, CN II-XII intact Skin exam: Present: warm, dry, intact, normal color. Absent: rash Course Vital Signs 01/17/21 01/17/21 14:09 15:37 Temperature 98.5 F Pulse Rate 71 71 Respiratory 18 18 Rate Blood Pressure 129/74 127/75 O2 Sat by Pulse 98 99 Oximetry Medical Decision Making - Medical Decision Making I did obtain records from [facility]. Patient had CT, ultrasound, lab work. Patient was hyperglycemic, start insulin drip was transitioned to sliding scale. Patient has long-acting and short-acting insulin which was prescribed patient. Patient CT also showed gallbladder wall cysts patient was evaluated by Dr. Thompson who recommended no surgery. Patient does not have any signs of acute cholecystitis. Lab work was repeated today shows evidence of 152 glucose, mild lactic acidosis related to dehydration patient was given 1 L of fluids. 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 Patient we discharged in stable condition return parameters discussed. - Lab Data Result diagrams: 01/17/21 14:46 01/17/21 14:46 Lab Results 01/17/21 01/17/21 01/17/21 Range/Units 14:46 14:46 14:46 WBC 7.7 (3.8-10.6) k/uL RBC 4.03 L (4.30-5.90) m/uL Hgb 12.5 L (13.0-17.5) gm/dL Hct 35.3 L (39.0-53.0) % MCV 87.7 (80.0-100.0) fL MCH 31.0 (25.0-35.0) pg MCHC 35.3 (31.0-37.0) g/dL RDW 12.3 (11.5-15.5) % Plt Count 141 L (150-450) k/uL MPV 9.0 Neutrophils % 48 % Lymphocytes % 40 % Monocytes % 5 % Eosinophils % 4 % Basophils % 1 % Neutrophils # 3.7 (1.3-7.7) k/uL Lymphocytes # 3.1 (1.0-4.8) k/uL Monocytes # 0.3 (0-1.0) k/uL Eosinophils # 0.3 (0-0.7) k/uL Basophils # 0.1 (0-0.2) k/uL Sodium 135 L (137-145) mmol/L Potassium 3.1 L (3.5-5.1) mmol/L Chloride 99 (98-107) mmol/L Carbon Dioxide 29 (22-30) mmol/L Anion Gap 7 mmol/L BUN 12 (9-20) mg/dL Creatinine 0.69 (0.66-1.25) mg/dL Est GFR (CKD-EPI)AfAm >90 (>60 ml/min/1.73 sqM) Est GFR (CKD-EPI)NonAf >90 (>60 ml/min/1.73 sqM) Glucose 152 H (74-99) mg/dL Plasma Lactic Acid Kash (0.7-2.0) mmol/L Calcium 8.9 (8.4-10.2) mg/dL Total Bilirubin 0.4 (0.2-1.3) mg/dL AST 30 (17-59) U/L ALT 22 (4-49) U/L Alkaline Phosphatase 80 (38-126) U/L Total Protein 5.8 L (6.3-8.2) g/dL Albumin 3.5 (3.5-5.0) g/dL Amylase 45 (30-110) U/L Lipase 121 (23-300) U/L Urine Color Light Yellow Urine Appearance Clear (Clear) Urine pH 7.0 (5.0-8.0) Ur Specific [place] 1.009 (1.001-1.035) Urine Protein Negative (Negative) Urine Glucose (UA) 4+ H (Negative) Urine Ketones Negative (Negative) Urine Blood Negative (Negative) Urine Nitrite Negative (Negative) Urine Bilirubin Negative (Negative) Urine Urobilinogen 2.0 (<2.0) mg/dL Ur Leukocyte Esterase Negative (Negative) Acetone, Qual Negative (Negative) 01/17/21 Range/Units 14:46 WBC (3.8-10.6) k/uL RBC (4.30-5.90) m/uL Hgb (13.0-17.5) gm/dL Hct (39.0-53.0) % MCV (80.0-100.0) fL MCH (25.0-35.0) pg MCHC (31.0-37.0) g/dL RDW (11.5-15.5) % Plt Count (150-450) k/uL MPV Neutrophils % % Lymphocytes % % Monocytes % % Eosinophils % % Basophils % % Neutrophils # (1.3-7.7) k/uL Lymphocytes # (1.0-4.8) k/uL Monocytes # (0-1.0) k/uL Eosinophils # (0-0.7) k/uL Basophils # (0-0.2) k/uL Sodium (137-145) mmol/L Potassium (3.5-5.1) mmol/L Chloride (98-107) mmol/L Carbon Dioxide (22-30) mmol/L Anion Gap mmol/L BUN (9-20) mg/dL Creatinine (0.66-1.25) mg/dL Est GFR (CKD-EPI)AfAm (>60 ml/min/1.73 sqM) Est GFR (CKD-EPI)NonAf (>60 ml/min/1.73 sqM) Glucose (74-99) mg/dL Plasma Lactic Acid Kash 2.4 H* (0.7-2.0) mmol/L Calcium (8.4-10.2) mg/dL Total Bilirubin (0.2-1.3) mg/dL AST (17-59) U/L ALT (4-49) U/L Alkaline Phosphatase (38-126) U/L Total Protein (6.3-8.2) g/dL Albumin (3.5-5.0) g/dL Amylase (30-110) U/L Lipase (23-300) U/L Urine Color Urine Appearance (Clear) Urine pH (5.0-8.0) Ur Specific [place] (1.001-1.035) Urine Protein (Negative) Urine Glucose (UA) (Negative) Urine Ketones (Negative) Urine Blood (Negative) Urine Nitrite (Negative) Urine Bilirubin (Negative) Urine Urobilinogen (<2.0) mg/dL Ur Leukocyte Esterase (Negative) Acetone, Qual (Negative) Disposition Clinical Impression: New onset type 1 diabetes mellitus, uncontrolled Disposition: HOME SELF-CARE Condition: Stable Instructions (If sedation given, give patient instructions): Type 1 Diabetes in Adults: New Diagnosis (ED) Additional Instructions: Continue your insulin as directed and prescribed.Please return to the Emergency Department if symptoms worsen or any other concerns. Is patient prescribed a controlled substance at d/c from ED?: No Referrals: Kasia Wilkerson MD [Primary Care Provider] - 1-2 days Diabetes Education,Blane TYSON [NON-STAFF] - 1-2 days Time of Disposition: 16:15
[2021-01-17 17:20] VITALS: BP 122/72; PULSE 66; TEMP 97.6
== END 2021-01-17 17:17 | disposition home or self-care (01) ==
LOC: EC 14:08
DX: E10.65 Type 1 diabetes mellitus with hyperglycemia (principal); E86.0 Dehydration; R19.7 Diarrhea, unspecified
CPT/HCPCS: 36415; 80053; 82150; 82009; 83605; 83690; 85025; 81003; 99284; 96374; 96375; 96361; J2405; J1170

== ENCOUNTER → 2021-05-10 | Outpatient (CLI) | payer BC, OTHER ==
[2021-05-10 21:25] LABS: HIV 2 AB Non-Reactive (Non-Reactive); HIV AB P24 Non-Reactive (Non-Reactive); HIV P24 AG Non-Reactive (Non-Reactive)
[2021-05-10 23:10] LABS: Hepatitis B Surface AB- Quant 413.1 mIU/mL; Hepatitis B Surface Antibody Reactive (Non-Reactive); Hepatitis B Surface Antigen Non-Reactive (Non-Reactive); Hepatitis C IgG Antibody Non-Reactive (Non-Reactive)
== END | disposition home or self-care (01) ==
LOC: LABWHC1 13:35
PROVIDERS: ATTEND Nurse Practitioner Family
DX: D72.828 Other elevated white blood cell count (principal); F19.11 Other psychoactive substance abuse, in remission
CPT/HCPCS: 36415; 86706; 86803; 87040; 87340; 87390

== ENCOUNTER 2021-06-06 12:08 | Inpatient (IN) | payer BC, OTHER ==
[2021-06-06 12:22] LABS: Glucose,Whole Blood 540 mg/dL (75-99)
[2021-06-06] MEDS ORDERED: Potassium Replacement Protocol 1 EACH MISC MISCELLANE PRN (12:39)
[2021-06-06] MEDS ORDERED: SODIUM CHLORIDE 0.9% 1,000 ML IV ONE (12:39)
[2021-06-06] MEDS ORDERED: INSULIN REGULAR BOLUS (FROM DRIP BAG) IV ONE (12:39)
[2021-06-06] MEDS ORDERED: Magnesium Replacement Protocol 1 EACH MISC MISCELLANE PRN (12:39)
[2021-06-06] MEDS ORDERED: SODIUM CHLORIDE 0.9% 1,000 ML IV SCH (12:45)
--- NOTE | 2021-06-06 12:50 | ED ---
General Adult HPI - General Chief complaint: Abdominal Pain Stated complaint: hyperglycemia Time Seen by Provider: 06/06/21 12:10 Source: patient, EMS, RN notes reviewed, old records reviewed Mode of arrival: EMS Limitations: no limitations - History of Present Illness Initial comments: This is a 26-year-old male who has a past medical history significant for diabetes. Patient states his sugars have been running high for 4 weeks. Patient was over the last couple of days he started having vomiting and nausea. Patient states it also caused him a lot of abdominal pain and now his sugars are extremely high and thinks he may be in DKA. Patient denies any recent fever chills or cough per patient denies any chest pain difficult breathing shortness of breath. Patient denies any diarrhea. Patient denies any headache patient denies any numbness or focal weakness. - Related Data Home Medications Medication Instructions Recorded Confirmed Insulin Glargine,Hum.rec.anlog 30 unit SQ HS 06/06/21 06/06/21 [Lantus Solostar] Insulin Lispro [humaLOG Kwikpen] See Protocol SQ AC-TID 06/06/21 06/06/21 Allergies Allergy/AdvReac Type Severity Reaction Status Date / Time No Known Allergies Allergy Verified 06/06/21 13:33 Review of Systems ROS Statement: Those systems with pertinent positive or pertinent negative responses have been documented in the HPI. ROS Other: All systems not noted in ROS Statement are negative. Past Medical History Past Medical History: Diabetes Mellitus History of Any Multi-Drug Resistant Organisms: None Reported Past Surgical History: Orthopedic Surgery Past Psychological History: ADD/ADHD, Anxiety, Bipolar, Depression Smoking Status: Current some day smoker Past Alcohol Use History: None Reported Past Drug Use History: Marijuana General Exam - General Exam Comments Initial Comments: GENERAL: Patient is well-developed and well-nourished. Patient is nontoxic and well- hydrated and is in mild distress. ENT: Neck is soft and supple. No significant lymphadenopathy is noted. Oropharynx is clear. Dry mucous membranes. Neck has full range of motion without eliciting any pain. EYES: The sclera were anicteric and conjunctiva were pink and moist. Extraocular movements were intact and pupils were equal round and reactive to light. Eyelids were unremarkable. PULMONARY: Unlabored respirations. Good breath sounds bilaterally. No audible rales rhonchi or wheezing was noted. CARDIOVASCULAR: There is a regular rate and rhythm without any murmurs gallops or rubs. ABDOMEN: No specific area of tenderness is diffusely mildly tender no rebound or guarding noted SKIN: Skin is clear with no lesions or rashes and otherwise unremarkable. NEUROLOGIC: Patient is alert and oriented x3. Cranial nerves II through XII are grossly intact. Motor and sensory are also intact. Normal speech, volume and content. Symmetrical smile. MUSCULOSKELETAL: Normal extremities with adequate strength and full range of motion. No lower extremity swelling or edema. No calf tenderness. LYMPHATICS: No significant lymphadenopathy is noted PSYCHIATRIC: Normal psychiatric evaluation. Limitations: no limitations Course Vital Signs 06/06/21 06/06/21 12:10 13:49 Temperature 98.9 F Pulse Rate 99 Respiratory 22 Rate Blood Pressure 151/87 139/88 O2 Sat by Pulse 100 Oximetry Medical Decision Making - Medical Decision Making EKG shows normal sinus rhythm at 100 bpm IA interval 218 QRS is 86 QT interval 346 QTC is 446. Patient's shows no ST segment elevation or depression. Patient was given 2 L of normal saline was started on a an insulin drip after insulin bolus is given. Patient was also given droperidol for pain and nausea. I spoke with Dr. Ervin he agreed to admit the patient admitted the patient wrote admitting orders. I put the patient in the ICU. I spoke with Dr. Bailey he agreed to accept the patient the ICU. - Lab Data Result diagrams: 06/06/21 12:00 06/06/21 12:00 Lab Results 06/06/21 06/06/21 06/06/21 Range/Units 12:00 12:00 12:00 WBC 24.9 H (3.8-10.6) k/uL RBC 5.34 (4.30-5.90) m/uL Hgb 16.0 (13.0-17.5) gm/dL Hct 52.3 (39.0-53.0) % MCV 98.0 (80.0-100.0) fL MCH 30.0 (25.0-35.0) pg MCHC 30.6 L (31.0-37.0) g/dL RDW 13.4 (11.5-15.5) % Plt Count 396 (150-450) k/uL MPV 7.7 Neutrophils % 87 % Lymphocytes % 7 % Monocytes % 4 % Eosinophils % 0 % Basophils % 0 % Neutrophils # 21.7 H (1.3-7.7) k/uL Lymphocytes # 1.9 (1.0-4.8) k/uL Monocytes # 0.9 (0-1.0) k/uL Eosinophils # 0.0 (0-0.7) k/uL Basophils # 0.1 (0-0.2) k/uL Hypochromasia Moderate VBG pH 6.98 L* (7.31-7.41) VBG pCO2 24 L (37-51) mmHg VBG HCO3 5 L* (24-28) mmol/L Sodium 130 L (137-145) mmol/L Potassium 6.0 H (3.5-5.1) mmol/L Chloride 97 L (98-107) mmol/L Carbon Dioxide <5 L* (22-30) mmol/L Anion Gap mmol/L BUN 36 H (9-20) mg/dL Creatinine 1.56 H (0.66-1.25) mg/dL Est GFR (CKD-EPI)AfAm 71 (>60 ml/min/1.73 sqM) Est GFR (CKD-EPI)NonAf 61 (>60 ml/min/1.73 sqM) Glucose 533 H* (74-99) mg/dL POC Glucose (mg/dL) (75-99) mg/dL POC Glu Independent [employer] Maker ID 06/06/21 Range/Units 12:19 WBC (3.8-10.6) k/uL RBC (4.30-5.90) m/uL Hgb (13.0-17.5) gm/dL Hct (39.0-53.0) % MCV (80.0-100.0) fL MCH (25.0-35.0) pg MCHC (31.0-37.0) g/dL RDW (11.5-15.5) % Plt Count (150-450) k/uL MPV Neutrophils % % Lymphocytes % % Monocytes % % Eosinophils % % Basophils % % Neutrophils # (1.3-7.7) k/uL Lymphocytes # (1.0-4.8) k/uL Monocytes # (0-1.0) k/uL Eosinophils # (0-0.7) k/uL Basophils # (0-0.2) k/uL Hypochromasia VBG pH (7.31-7.41) VBG pCO2 (37-51) mmHg VBG HCO3 (24-28) mmol/L Sodium (137-145) mmol/L Potassium (3.5-5.1) mmol/L Chloride (98-107) mmol/L Carbon Dioxide (22-30) mmol/L Anion Gap mmol/L BUN (9-20) mg/dL Creatinine (0.66-1.25) mg/dL Est GFR (CKD-EPI)AfAm (>60 ml/min/1.73 sqM) Est GFR (CKD-EPI)NonAf (>60 ml/min/1.73 sqM) Glucose (74-99) mg/dL POC Glucose (mg/dL) 540 H (75-99) mg/dL POC Glu Independent [employer] Maker ID Dian Tejeda Critical Care Time Critical Care Time: Yes Total Critical Care Time: 35 Disposition Clinical Impression: DKA (diabetic ketoacidosis) Disposition: ADMITTED IP TO THIS HOSP Referrals: None,Stated [Primary Care Provider] - 1-2 days Time of Disposition: 13:56
[2021-06-06 13:03] LABS: African American GFR (CKD) 71 (>60 ml/min/1.73 sqM); Blood Urea Nitrogen 36 mg/dL (9-20); Chloride 97 mmol/L (98-107); Non-African American GFR(CKD) 61 (>60 ml/min/1.73 sqM); Sodium 130 mmol/L (137-145)
[2021-06-06 13:05] LABS: VBG PH 6.98 (7.31-7.41)
[2021-06-06 13:09] LABS: Basophils # (A) 0.1 k/uL (0-0.2); Basophils % (A) 0 %; Eosinophils % (A) 0 %; HCT 52.3 % (39.0-53.0); Hypochromasia Moderate; Lymphocytes # (A) 1.9 k/uL (1.0-4.8); Lymphocytes % (A) 7 %; MCHC 30.6 g/dL (31.0-37.0); Mean Platelet Volume 7.7; Monocytes # (A) 0.9 k/uL (0-1.0); Monocytes % (A) 4 %; Neutrophils # (A) 21.7 k/uL (1.3-7.7); Neutrophils % (A) 87 %; Platelet Count 396 k/uL (150-450); RBC 5.34 m/uL (4.30-5.90); RDW 13.4 % (11.5-15.5); WBC 24.9 k/uL (3.8-10.6)
[2021-06-06 13:16] LABS: Carbon Dioxide <5 mmol/L (22-30); Glucose 533 mg/dL (74-99)
[2021-06-06] MEDS: INSULIN REGULAR 100 UNIT in SODIUM CHLORIDE 0.9% 100 ML IV SCH (13:45)
[2021-06-06 14:20] LABS: Glucose,Whole Blood 335 mg/dL (75-99)
[2021-06-06 14:23] LABS: Appearance,Urine Clear (Clear); Bacteria,Urine Rare /hpf; Bilirubin,Urine Negative (Negative); Blood,Urine Trace (Negative); Color,Urine Colorless; Glucose,Urine (UA) 4+ (Negative); Hyaline Casts,Urine 3 /lpf (0-2); Leukocyte Esterase,Urine Negative (Negative); Mucus,Urine Rare /hpf; Nitrite,Urine Negative (Negative); Protein,Urine Trace (Negative); Specific Gravity,Urine 1.016 (1.001-1.035); Squamous Epithelial Cell,Urine <1 /hpf (0-4); Urobilinogen,Urine <2.0 mg/dL (<2.0); WBC,Urine 1 /hpf (0-5)
--- NOTE | 2021-06-06 14:23 | P.CNPUL ---
History of Present Illness Consult date: 06/06/21 Requesting physician: Valente Ervin Reason for consult: other (DKA) Chief complaint: Nausea vomiting and vague abdominal pain. History of present illness: This is a 26-year-old white male with history of insulin-dependent diabetes, supposed to be on insulin, however the patient is not very compliant with it. Patient came in with 4 weeks history of intermittent nausea vomiting abdominal pain. And his sugars were noted to be quite high upon arrival to the ER. His laboratory studies are consistent with acute diabetic ketoacidosis. I was asked to see the patient on consultation, and I evaluated the patient the ER. Recommended icy admission, and recommended treatment as per the DKA protocol. Presently the patient is on IV fluid in the formal 0.9 normal saline at 20 mL per hour. His also on insulin at 6.4 units per hour. Patient denies any fever, he does have chills, denies any shortness of breath, no cough, no wheezing, denies any headache no blurred vision or dizziness. Denies any urinary symptoms. Denies any IV drug abuse. Chest x-ray is pending. Labs were all reviewed. Review of Systems Constitutional: Chills, no fever, no weight loss. HEENT: Negative. Pulmonary: Negative. GI: As noted in HPI. Cardiac: Negative. Genitourinary: Negative. Musculoskeletal: Negative. Skin: Negative. Neurologic: Negative. Psychiatric: Negative. Hematologic: Negative. Endocrine: History of diabetes type 1. Past Medical History Past Medical History: Diabetes Mellitus History of Any Multi-Drug Resistant Organisms: None Reported Past Surgical History: Orthopedic Surgery Past Psychological History: ADD/ADHD, Anxiety, Bipolar, Depression Smoking Status: Current some day smoker Past Alcohol Use History: None Reported Past Drug Use History: Marijuana Medications and Allergies Home Medications Medication Instructions Recorded Confirmed Type Insulin Glargine,Hum.rec.anlog 30 unit SQ HS 06/06/21 06/06/21 History [Lantus Solostar] Insulin Lispro [humaLOG Kwikpen] See Protocol SQ AC-TID 06/06/21 06/06/21 Histor y Allergies Allergy/AdvReac Type Severity Reaction Status Date / Time No Known Allergies Allergy Verified 06/06/21 13:33 Physical Exam Vitals: Vital Signs Temp Pulse Resp BP Pulse Ox 06/06/21 14:10 114/76 06/06/21 13:49 139/88 06/06/21 12:10 98.9 F 99 22 151/87 100 Intake and Output 06/05/21 06/06/21 06/06/21 22:59 06:59 14:59 Other: Weight 63.503 kg Physical Exam: Revealed a 26-year-old white male anxious, tremulous, in no distress. Head: Atraumatic, normocephalic. HEENT:[Neck is supple.] [No neck masses.] [No thyromegaly.] [No JVD.] Chest: [Clear throughout, no crackles, no rhonchi, no wheezes.] Cardiac Exam: [Normal S1 and S2, no S3 gallop, no murmur.] Abdomen: [Soft, nontender, no megaly, no rebound, no guarding, normal bowel s ounds.] Extremities: [No clubbing, no edema, no cyanosis.] Neurological Exam: [No focal neurologic deficit.] Alert and oriented 3. Psychiatric: Anxious mood, flat affect, normal mental status examination. Skin: Multiple tattoos, no rashes. Musculoskeletal: No deformities noted limitation in range of motion. Results - Laboratory Findings CBC and BMP: 06/06/21 12:00 06/06/21 12:00 Abnormal lab findings: Abnormal Labs 06/06/21 06/06/21 06/06/21 12:00 12:00 12:00 WBC 24.9 H MCHC 30.6 L Neutrophils # 21.7 H VBG pH 6.98 L* VBG pCO2 24 L VBG HCO3 5 L* Sodium 130 L Potassium 6.0 H Chloride 97 L Carbon Dioxide <5 L* BUN 36 H Creatinine 1.56 H Glucose 533 H* POC Glucose (mg/dL) 06/06/21 12:19 WBC MCHC Neutrophils # VBG pH VBG pCO2 VBG HCO3 Sodium Potassium Chloride Carbon Dioxide BUN Creatinine Glucose POC Glucose (mg/dL) 540 H Assessment and Plan Assessment: Impression: Acute diabetic ketoacidosis Noncompliance with insulin Multiple GI symptoms secondary to above. Mostly nausea and vomiting. Leukocytosis secondary to above, doubt infection. Recommendation: Admit patient to ICU. Continue DKA protocol. Empiric antibiotics in the form of Rocephin until cultures are available including blood and urine cultures. GI and DVT prophylaxis. Will follow. Time with Patient: Greater than 30
[2021-06-06 14:25] LABS: Ketones,Urine 4+ (Negative)
--- NOTE | 2021-06-06 15:00 | XR ---
EXAMINATION TYPE: XR chest 1V DATE OF EXAM: 06/06/2021 COMPARISON: 10/20/2006 HISTORY: Short of breath TECHNIQUE: Single frontal view of the chest is obtained. FINDINGS: There is no focal air space opacity, pleural effusion, or pneumothorax seen. The cardiac silhouette size is within normal limits. The osseous structures are intact. IMPRESSION: No acute process.
[2021-06-06 15:13] LABS: Glucose,Whole Blood 266 mg/dL (75-99)
[2021-06-06] MEDS: D5-0.45% NACL WITH KCL 20MEQ/L 1,000 ML IV SCH (15:55)
[2021-06-06 16:17] LABS: Glucose,Whole Blood 243 mg/dL (75-99)
[2021-06-06 16:52] LABS: African American GFR (CKD) >90 (>60 ml/min/1.73 sqM); Anion Gap 20 mmol/L; Blood Urea Nitrogen 24 mg/dL (9-20); Chloride 109 mmol/L (98-107); Glucose 206 mg/dL (74-99); Non-African American GFR(CKD) >90 (>60 ml/min/1.73 sqM); Potassium 4.3 mmol/L (3.5-5.1); Sodium 136 mmol/L (137-145)
[2021-06-06 16:57] LABS: Glucose,Whole Blood 178 mg/dL (75-99)
[2021-06-06 17:05] LABS: Carbon Dioxide 7 mmol/L (22-30)
[2021-06-06 18:10] LABS: Glucose,Whole Blood 159 mg/dL (75-99)
[2021-06-06 19:13] LABS: Glucose,Whole Blood 136 mg/dL (75-99)
[2021-06-06 19:47] LABS: Glucose,Whole Blood 125 mg/dL (75-99)
[2021-06-06 20:05] LABS: Amphetamine Screen,Urine Not Detected (NotDetected); Barbiturate Screen,Urine Not Detected (NotDetected); Benzodiazepines Screen,Urine Not Detected (NotDetected); Cocaine Screen,Urine Not Detected (NotDetected); Methadone Screen, Urine Not Detected (NotDetected); Opiate Screen,Urine Not Detected (NotDetected); Oxycodone Screen, Urine Not Detected (NotDetected); Phencyclidine Screen,Urine Not Detected (NotDetected); Tricyclic Antidepressant,Urine Not Detected (NotDetected); Urn Cannabinoid Scrn Not Detected (NotDetected)
[2021-06-06 20:10] LABS: Glucose,Whole Blood 203 mg/dL (75-99)
[2021-06-06 20:30] LABS: ALT 14 U/L (4-49); AST 29 U/L (17-59); African American GFR (CKD) >90 (>60 ml/min/1.73 sqM); Albumin 3.8 g/dL (3.5-5.0); Alkaline Phosphatase 125 U/L (38-126); Amylase 40 U/L (30-110); Anion Gap 13 mmol/L; Blood Urea Nitrogen 18 mg/dL (9-20); Calcium 8.5 mg/dL (8.4-10.2); Carbon Dioxide 12 mmol/L (22-30); Chloride 110 mmol/L (98-107); Glucose 137 mg/dL (74-99); Lipase 50 U/L (23-300); Non-African American GFR(CKD) >90 (>60 ml/min/1.73 sqM); Phosphorus 2.9 mg/dL (2.5-4.5); Potassium 4.2 mmol/L (3.5-5.1); Sodium 135 mmol/L (137-145); Total Bilirubin 0.6 mg/dL (0.2-1.3); Total Protein 6.6 g/dL (6.3-8.2)
[2021-06-06 21:09] LABS: Glucose,Whole Blood 166 mg/dL (75-99)
--- NOTE | 2021-06-06 21:24 | HP ---
HISTORY AND PHYSICAL DATE OF SERVICE: 06/06/2021 CHIEF COMPLAINT: Abdominal pain as well as acute diabetic ketoacidosis. HISTORY OF PRESENT ILLNESS: This 26-year-old gentleman with a past medical history of multiple medical problems including diabetes type 1, ADD, ADHD, anxiety, bipolar, depression, history of nicotine dependence, history of THC, being followed Dr. Kasia Wilkerson in the outpatient setting, apparently was having some abdominal pain. The patient also had some nausea. Subsequently, the patient stopped taking insulin. The sugars have been been running high for the last 4 weeks. Because of the vomiting and nausea the patient apparently stopped taking insulin and the patient came to [facility] and was admitted for further evaluation and treatment. The patient was rather drowsy on admission. The patient was found to have elevated white count 24.9. The VBG showed pH 6.9, sodium 130, potassium 6, creatinine is 1.56 and blood sugar elevated to 533 and the patient was also acetone positive. DKA drip was initiated but the patient continues to be acidotic and anion gap is still elevated at 20 at this point. The patient is unable the patient is unable to provide a clear cut history because of the change in mental status. Most of the history is taken from my discussion with the ER physician, discussion with staff and review of chart. PAST MEDICAL HISTORY: History of diabetes type 1, history ADHD, anxiety, depression, bipolar, suicidal ideation. MEDICATIONS: Lantus 30 units subcu q.h.s. ALLERGIES: None. FAMILY HISTORY, SOCIAL HISTORY, REVIEW OF SYSTEMS: Could not be taken because of change in mental status. History of smoking and THC per chart and also history of meth and heroin. PHYSICAL EXAMINATION: The patient is stuporous. Pulse is 128, blood pressure 128/90, respiration 24, temperature is normal, pulse ox 98% on room air. HEENT: Normal oral mucosa moist. NECK: No jugular venous distention. No lymph node enlargement. CARDIOVASCULAR: S1 and S2 muffled. LUNGS: Breath sounds diminished at bases. No rhonchi no crackles. ABDOMEN: Soft, nontender. LEGS: No edema no swelling. NERVOUS SYSTEM: Higher functions as mentioned earlier, otherwise moves all 4 limbs. Full exam not possible. SKIN: No ulcers. JOINTS: No active deforming arthropathy. LAB: WBC 24.9. ABGs noted. Sodium 130, potassium is 6 on admission and CO2 was less than 5. Creatinine is 1.56. Other labs are noted. ASSESSMENT: 1. Acute diabetic ketoacidosis with uncontrolled diabetes mellitus, type 1, present on admission. 2. Change in mental status acute metabolic encephalopathy secondary to acute diabetic ketoacidosis. 3. Acute metabolic acidosis secondary to diabetic ketoacidosis. 4. Hyponatremia. 5. Hyperkalemia. 6. Acute renal failure with acute tubular necrosis prerenal acute renal failure secondary dehydration. 7. Elevated WBC, rule out sepsis or infection. 8. History ADD and ADHD. 9. History of noncompliance. 10.Anxiety bipolar depression. 11.History of continued nicotine dependence. 12.History of marijuana. 13.History of meth and heroin. 14.FULL CODE. DISCUSSION: In this 26-year-old gentleman who presented with multiple complex medical issues, we will monitor the patient closely, we will continue the insulin drip. The patient is on D5 0.9 insulin drip at this time but will continue till anion gap close otherwise home doses may be resumed if the patient's sensorium is improved and the patient is able to take a decent amount of p.o. intake. Otherwise home medications will be resumed and repeat labs will be ordered. Prognosis guarded because of multiple complex medical issues. The patient is monitored in ICU. Dr. Bailey is following the patient for ICU management. Further recommendations to follow. MMODL / IJN: [id number] /
[2021-06-06 22:21] LABS: Glucose,Whole Blood 191 mg/dL (75-99)
[2021-06-06 23:08] LABS: Glucose,Whole Blood 208 mg/dL (75-99)
[2021-06-07 00:05] LABS: Glucose,Whole Blood 213 mg/dL (75-99)
[2021-06-07] MEDS: PANTOPRAZOLE 40 MG/10 ML VIAL IVP SCH ×2 (00:05→08:06)
[2021-06-07] MEDS: HEPARIN SODIUM,PORCINE/PF 5,000 UNIT/0.5 ML SYRINGE SQ SCH ×3 (00:06→20:46)
[2021-06-07 02:02] LABS: Glucose,Whole Blood 260 mg/dL (75-99)
[2021-06-07 03:05] LABS: Glucose,Whole Blood 198 mg/dL (75-99)
[2021-06-07 04:05] LABS: Glucose,Whole Blood 270 mg/dL (75-99)
[2021-06-07] MEDS: INSULIN REGULAR 100 UNIT in SODIUM CHLORIDE 0.9% 100 ML IV SCH (04:51)
[2021-06-07] MEDS: D5-0.45% NACL WITH KCL 20MEQ/L 1,000 ML IV SCH (04:53)
[2021-06-07 04:59] LABS: Glucose,Whole Blood 249 mg/dL (75-99)
[2021-06-07 05:29] LABS: Basophils # (A) 0.1 k/uL (0-0.2); Basophils % (A) 0 %; Eosinophils # (A) 0.1 k/uL (0-0.7); Eosinophils % (A) 1 %; HCT 39.9 % (39.0-53.0); Lymphocytes # (A) 1.8 k/uL (1.0-4.8); Lymphocytes % (A) 13 %; MCH 31.6 pg (25.0-35.0); MCHC 35.1 g/dL (31.0-37.0); Mean Platelet Volume 6.9; Monocytes # (A) 0.9 k/uL (0-1.0); Monocytes % (A) 6 %; Neutrophils % (A) 78 %; Platelet Count 287 k/uL (150-450); RBC 4.43 m/uL (4.30-5.90); RDW 13.2 % (11.5-15.5); WBC 14.1 k/uL (3.8-10.6)
[2021-06-07 05:31] LABS: MCV 90.1 fL (80.0-100.0)
[2021-06-07 05:46] LABS: ALT 12 U/L (4-49); AST 16 U/L (17-59); African American GFR (CKD) >90 (>60 ml/min/1.73 sqM); Albumin 3.2 g/dL (3.5-5.0); Alkaline Phosphatase 115 U/L (38-126); Anion Gap 7 mmol/L; Blood Urea Nitrogen 13 mg/dL (9-20); Calcium 8.4 mg/dL (8.4-10.2); Carbon Dioxide 17 mmol/L (22-30); Chloride 107 mmol/L (98-107); Glucose 260 mg/dL (74-99); Non-African American GFR(CKD) >90 (>60 ml/min/1.73 sqM); Potassium 3.6 mmol/L (3.5-5.1); Sodium 131 mmol/L (137-145); Total Bilirubin 0.2 mg/dL (0.2-1.3); Total Protein 5.8 g/dL (6.3-8.2)
[2021-06-07 06:20] LABS: Glucose,Whole Blood 311 mg/dL (75-99)
[2021-06-07] MEDS ORDERED: POTASSIUM CHLORIDE ER 20 MEQ TAB.ER PO SCH (07:00)
[2021-06-07 07:14] LABS: Glucose,Whole Blood 177 mg/dL (75-99)
[2021-06-07 08:06] LABS: Glucose,Whole Blood 246 mg/dL (75-99)
[2021-06-07 09:06] LABS: Glucose,Whole Blood 219 mg/dL (75-99)
--- NOTE | 2021-06-07 09:33 | XR ---
EXAMINATION TYPE: XR chest 1V portable DATE OF EXAM: 06/07/2021 CLINICAL HISTORY: Sternal pain. TECHNIQUE: Portable semiupright view of the chest. COMPARISON: 06/06/2021 FINDINGS: The cardiomediastinal silhouette is within normal limits for size. Pulmonary vasculature i s normal. There is no focal air space opacity. No pleural effusion. No pneumothorax seen. No acute d isplaced osseous fracture. IMPRESSION: No acute cardiopulmonary process.
[2021-06-07] MEDS: SODIUM CHLORIDE 0.9% 1,000 ML IV SCH (10:01)
[2021-06-07 11:21] LABS: Glucose,Whole Blood 219 mg/dL (75-99)
[2021-06-07 11:29] LABS: Glucose,Whole Blood 194 mg/dL (75-99)
[2021-06-07] MEDS: INSULIN ASPART (NovoLOG) 100 UNIT/ML VIAL SQ SCH ×3 (12:00→20:46)
--- NOTE | 2021-06-07 13:30 | P.PN ---
Subjective Progress Note Date: 06/07/21 Principal diagnosis: Acute diabetic ketoacidosis This is a 26-year-old white male with history of insulin-dependent diabetes, supposed to be on insulin, however the patient is not very compliant with it. Patient came in with 4 weeks history of intermittent nausea vomiting abdominal pain. And his sugars were noted to be quite high upon arrival to the ER. His laboratory studies are consistent with acute diabetic ketoacidosis. I was asked to see the patient on consultation, and I evaluated the patient the ER. Recommended icy admission, and recommended treatment as per the DKA protocol. Presently the patient is on IV fluid in the formal 0.9 normal saline at 20 mL per hour. His also on insulin at 6.4 units per hour. Patient denies any fever, he does have chills, denies any shortness of breath, no cough, no wheezing, denies any headache no blurred vision or dizziness. Denies any urinary symptoms. Denies any IV drug abuse. Chest x-ray is pending. Labs were all reviewed. Reevaluated today on 06/07/2021, patient remains in the ICU, however he is doing great, his anion gap has resolved, blood sugar in the range of 200, I will switch the patient to 0.9 normal saline at 75 mL/h, we will discontinue insulin drip, and start the patient on insulin subcu as per protocol. He will receive Accu-Chek every hour before meals and daily at bedtime. And I have started the patient on Lantus insulin at his usual dose of 30 units per day. All labs were reviewed. His bicarb today is 17 anion gap is 7 BUN is 13 and creatinine 0.52. Objective - Vital Signs Vital signs: Vital Signs Temp 98.1 F 06/07/21 08:00 Pulse 100 06/07/21 10:00 Resp 18 06/07/21 10:00 BP 120/78 06/07/21 10:00 Pulse Ox 96 06/07/21 10:00 Intake & Output 06/06/21 06/07/21 06/07/21 18:59 06:59 18:59 Intake Total 523.458 0101.382 225 Output Total 1700 2100 700 Balance -1464.951 467.382 -475 Weight 63.503 kg 59 kg Intake: IV 225 900 225 D5-0.45% NaCl with KCl 225 900 225 20Meq/l 1,000 ml @ 75 mls /hr IV .[id number] REGINA Rx#: [id number] Intake, IV Titration 10.049 67.382 Amount Insulin Regular 100 unit 10.049 67.382 In Sodium Chloride 0.9% 100 ml @ 0.1 UNITS/KG/HR 6.414 mls/hr IV .[id number] REGINA Rx#:[id number] Oral 1600 Output: Urine 1700 2100 700 Other: Voiding Method Urinal Urinal Urinal # Voids 2 - Exam Physical Exam: Revealed a 26-year-old white male in no distress, calm, on room air. Head: Atraumatic, normocephalic. HEENT:[Neck is supple.] [No neck masses.] [No thyromegaly.] [No JVD.] Chest: [Clear throughout, no crackles, no rhonchi, no wheezes.] Cardiac Exam: [Normal S1 and S2, no S3 gallop, no murmur.] Abdomen: [Soft, nontender, no megaly, no rebound, no guarding, normal bowel sounds.] Extremities: [No clubbing, no edema, no cyanosis.] Neurological Exam: [No focal neurologic deficit.] Alert and oriented 3. Psychiatric: Normal mood, affect and normal mental status examination. Skin: Multiple tattoos, no rashes. Musculoskeletal: No deformities noted limitation in range of motion. - Labs CBC & Chem 7: 06/07/21 04:53 06/07/21 04:53 Labs: Abnormal Lab Results - Last 24 Hours (Table) 06/06/21 06/06/21 06/06/21 Range/Units 14:17 14:18 15:12 WBC (3.8-10.6) k/uL Neutrophils # (1.3-7.7) k/uL Sodium (137-145) mmol/L Chloride (98-107) mmol/L Carbon Dioxide (22-30) mmol/L BUN (9-20) mg/dL Creatinine (0.66-1.25) mg/dL Glucose (74-99) mg/dL POC Glucose (mg/dL) 335 H 266 H (75-99) mg/dL AST (17-59) U/L Total Protein (6.3-8.2) g/dL Albumin (3.5-5.0) g/dL Urine Protein Trace H (Negative) Urine Glucose (UA) 4+ H (Negative) Urine Ketones 4+ H (Negative) Urine Blood Trace H (Negative) Urine Bacteria Rare H (None) /hpf Hyaline Casts 3 H (0-2) /lpf Urine Mucus Rare H (None) /hpf 06/06/21 06/06/21 06/06/21 Range/Units 16:16 16:23 16:55 WBC (3.8-10.6) k/uL Neutrophils # (1.3-7.7) k/uL Sodium 136 L (137-145) mmol/L Chloride 109 H (98-107) mmol/L Carbon Dioxide 7 L* (22-30) mmol/L BUN 24 H (9-20) mg/dL Creatinine (0.66-1.25) mg/dL Glucose 206 H (74-99) mg/dL POC Glucose (mg/dL) 243 H 178 H (75-99) mg/dL AST (17-59) U/L Total Protein (6.3-8.2) g/dL Albumin (3.5-5.0) g/dL Urine Protein (Negative) Urine Glucose (UA) (Negative) Urine Ketones (Negative) Urine Blood (Negative) Urine Bacteria (None) /hpf Hyaline Casts (0-2) /lpf Urine Mucus (None) /hpf 06/06/21 06/06/21 06/06/21 Range/Units 18:09 19:12 19:45 WBC (3.8-10.6) k/uL Neutrophils # (1.3-7.7) k/uL Sodium (137-145) mmol/L Chloride (98-107) mmol/L Carbon Dioxide (22-30) mmol/L BUN (9-20) mg/dL Creatinine (0.66-1.25) mg/dL Glucose (74-99) mg/dL POC Glucose (mg/dL) 159 H 136 H 125 H (75-99) mg/dL AST (17-59) U/L Total Protein (6.3-8.2) g/dL Albumin (3.5-5.0) g/dL Urine Protein (Negative) Urine Glucose (UA) (Negative) Urine Ketones (Negative) Urine Blood (Negative) Urine Bacteria (None) /hpf Hyaline Casts (0-2) /lpf Urine Mucus (None) /hpf 06/06/21 06/06/21 06/06/21 Range/Units 19:49 20:08 21:08 WBC (3.8-10.6) k/uL Neutrophils # (1.3-7.7) k/uL Sodium 135 L (137-145) mmol/L Chloride 110 H (98-107) mmol/L Carbon Dioxide 12 L (22-30) mmol/L BUN (9-20) mg/dL Creatinine (0.66-1.25) mg/dL Glucose 137 H (74-99) mg/dL POC Glucose (mg/dL) 203 H 166 H (75-99) mg/dL AST (17-59) U/L Total Protein (6.3-8.2) g/dL Albumin (3.5-5.0) g/dL Urine Protein (Negative) Urine Glucose (UA) (Negative) Urine Ketones (Negative) Urine Blood (Negative) Urine Bacteria (None) /hpf Hyaline Casts (0-2) /lpf Urine Mucus (None) /hpf 06/06/21 06/06/21 06/07/21 Range/Units 22:19 23:07 00:03 WBC (3.8-10.6) k/uL Neutrophils # (1.3-7.7) k/uL Sodium (137-145) mmol/L Chloride (98-107) mmol/L Carbon Dioxide (22-30) mmol/L BUN (9-20) mg/dL Creatinine (0.66-1.25) mg/dL Glucose (74-99) mg/dL POC Glucose (mg/dL) 191 H 208 H 213 H (75-99) mg/dL AST (17-59) U/L Total Protein (6.3-8.2) g/dL Albumin (3.5-5.0) g/dL Urine Protein (Negative) Urine Glucose (UA) (Negative) Urine Ketones (Negative) Urine Blood (Negative) Urine Bacteria (None) /hpf Hyaline Casts (0-2) /lpf Urine Mucus (None) /hpf 06/07/21 06/07/21 06/07/21 Range/Units 02:00 03:03 04:03 WBC (3.8-10.6) k/uL Neutrophils # (1.3-7.7) k/uL Sodium (137-145) mmol/L Chloride (98-107) mmol/L Carbon Dioxide (22-30) mmol/L BUN (9-20) mg/dL Creatinine (0.66-1.25) mg/dL Glucose (74-99) mg/dL POC Glucose (mg/dL) 260 H 198 H 270 H (75-99) mg/dL AST (17-59) U/L Total Protein (6.3-8.2) g/dL Albumin (3.5-5.0) g/dL Urine Protein (Negative) Urine Glucose (UA) (Negative) Urine Ketones (Negative) Urine Blood (Negative) Urine Bacteria (None) /hpf Hyaline Casts (0-2) /lpf Urine Mucus (None) /hpf 06/07/21 06/07/21 06/07/21 Range/Units 04:53 04:53 04:57 WBC 14.1 H (3.8-10.6) k/uL Neutrophils # 11.0 H (1.3-7.7) k/uL Sodium 131 L (137-145) mmol/L Chloride (98-107) mmol/L Carbon Dioxide 17 L (22-30) mmol/L BUN (9-20) mg/dL Creatinine 0.52 L (0.66-1.25) mg/dL Glucose 260 H (74-99) mg/dL POC Glucose (mg/dL) 249 H (75-99) mg/dL AST 16 L (17-59) U/L Total Protein 5.8 L (6.3-8.2) g/dL Albumin 3.2 L (3.5-5.0) g/dL Urine Protein (Negative) Urine Glucose (UA) (Negative) Urine Ketones (Negative) Urine Blood (Negative) Urine Bacteria (None) /hpf Hyaline Casts (0-2) /lpf Urine Mucus (None) /hpf 06/07/21 06/07/21 06/07/21 Range/Units 06:18 07:12 08:04 WBC (3.8-10.6) k/uL Neutrophils # (1.3-7.7) k/uL Sodium (137-145) mmol/L Chloride (98-107) mmol/L Carbon Dioxide (22-30) mmol/L BUN (9-20) mg/dL Creatinine (0.66-1.25) mg/dL Glucose (74-99) mg/dL POC Glucose (mg/dL) 311 H 177 H 246 H (75-99) mg/dL AST (17-59) U/L Total Protein (6.3-8.2) g/dL Albumin (3.5-5.0) g/dL Urine Protein (Negative) Urine Glucose (UA) (Negative) Urine Ketones (Negative) Urine Blood (Negative) Urine Bacteria (None) /hpf Hyaline Casts (0-2) /lpf Urine Mucus (None) /hpf 06/07/21 06/07/21 06/07/21 Range/Units 09:05 11:20 11:28 WBC (3.8-10.6) k/uL Neutrophils # (1.3-7.7) k/uL Sodium (137-145) mmol/L Chloride (98-107) mmol/L Carbon Dioxide (22-30) mmol/L BUN (9-20) mg/dL Creatinine (0.66-1.25) mg/dL Glucose (74-99) mg/dL POC Glucose (mg/dL) 219 H 219 H 194 H (75-99) mg/dL AST (17-59) U/L Total Protein (6.3-8.2) g/dL Albumin (3.5-5.0) g/dL Urine Protein (Negative) Urine Glucose (UA) (Negative) Urine Ketones (Negative) Urine Blood (Negative) Urine Bacteria (None) /hpf Hyaline Casts (0-2) /lpf Urine Mucus (None) /hpf Assessment and Plan Assessment: Impression: Acute diabetic ketoacidosis Noncompliance with insulin Multiple GI symptoms secondary to above. Mostly nausea and vomiting. Leukocytosis secondary to above, doubt infection. Recommendation: Will transfer the patient out of the ICU. Insulin as per sliding scale. Resume home insulin. Advanced diet as tolerated. Patient will be on ADA diet 1500 berenice. Advised to be more compliant with his insulin at home. We'll sign off and see when necessary. Time with Patient: Less than 30
[2021-06-07 15:16] VITALS: BMI 19.8
--- NOTE | 2021-06-07 16:12 | P.PN ---
Subjective Progress Note Date: 06/07/21 This is a 26-year-old male who was recently admitted with diabetic ketoacidosis and is being closely monitored. Patient continues to be in the ICU and was recently transitioned from insulin drip to sliding scale and long-acting and will continue to monitor closely. Continues to have some abdominal discomfort and not eating as he states he continues to have some nausea. Patient is lethargic although responding and is alert 3. Patient states he was just recently diagnosed with diabetes in December of this year and follows with Dr. Martinez. Patient has been noncompliant with medications over the last few weeks as he wasn't feeling very well. Patient currently denies any chest pain or palpitations. Patient is afebrile. Review of systems: Constitutional: reports of fatigue, no reports of fever, or chills Cardiovascular: No reports of chest pain or palpitations Respiratory: No reports of shortness of breath or cough GI: reports of nausea and continued abdominal discomfort, occasional heaving : No reports of dysuria or retention Neurovascular: Reports generalized weakness All medications have been reviewed Active Medications Heparin Sodium (Porcine) (Heparin Sodium,Porcine/Pf 5,000 Unit/0.5 Ml Syringe) 5,000 unit SQ Q12HR [facility] Last Admin: 06/07/21 08:01 Dose: Not Given Documented by: Sodium Chloride (Saline 0.9%) 1,000 mls @ 2,000 mls/hr IV .Q30M ONE Last Admin: 06/06/21 12:49 Dose: 2,000 mls/hr Documented by: Sodium Chloride (Saline 0.9%) 1,000 mls @ 75 mls/hr IV .[id number] [facility] Last Admin: 06/07/21 10:01 Dose: 75 mls/hr Documented by: Insulin Aspart (Insulin Aspart (Novolog) 100 Unit/Ml Vial) 0 unit SQ ACHS [facility]; Protocol Last Admin: 06/07/21 12:00 Dose: 2 unit Documented by: Insulin Detemir (Insulin Detemir (Levemir) 100 Unit/Ml Syr) 30 unit SQ DAILY@0700 [facility] Miscellaneous Information (Magnesium Replacement Protocol 1 Each Misc) 1 each MISCELLANE DAILY PRN; Protocol PRN Reason: Per Protocol Miscellaneous Information (Potassium Replacement Protocol 1 Each Misc) 1 each MISCELLANE DAILY PRN PRN Reason: Per Protocol Pantoprazole Sodium (Pantoprazole 40 Mg Tablet) 40 mg PO AC-BID [facility] Objective - Vital Signs Vital signs: Vital Signs Temp 98.1 F 06/07/21 08:00 Pulse 100 06/07/21 10:00 Resp 18 06/07/21 10:00 BP 120/78 06/07/21 10:00 Pulse Ox 96 06/07/21 10:00 Intake & Output 06/06/21 06/07/21 06/07/21 18:59 06:59 18:59 Intake Total 813.621 5831.382 225 Output Total 1700 2100 700 Balance -1464.951 467.382 -475 Weight 63.503 kg 59 kg Intake: IV 225 900 225 D5-0.45% NaCl with KCl 225 900 225 20Meq/l 1,000 ml @ 75 mls /hr IV .[id number] [facility] Rx#: [id number] Intake, IV Titration 10.049 67.382 Amount Insulin Regular 100 unit 10.049 67.382 In Sodium Chloride 0.9% 100 ml @ 0.1 UNITS/KG/HR 6.414 mls/hr IV .[id number] [facility] Rx#:[id number] Oral 1600 Output: Urine 1700 2100 700 Other: Voiding Method Urinal Urinal Urinal # Voids 2 - Exam Gen: This is a 26-year-old male lethargic although arousable, alert and oriented 3, thin built, ill-appearing. Temp is 98.1F, pulse is 103, respirations are 18, blood pressure is 108/69, oxygen saturation is 96% on room air. HEENT: Head is atraumatic, normocephalic. Pupils equal, round. Sclerae is anicteric. NECK: Supple. No JVD. No lymphadenopathy. No thyromegaly. LUNGS: Diminished breath sounds bilaterally with no wheezing or rhonchi noted. No intercostal retractions. HEART: S1, S2 are muffled ABDOMEN: Soft. Tender on palpation, Bowel sounds are present. No masses. EXTREMITIES: No pedal edema. No calf tenderness. NEUROLOGICAL: Patient is lethargic although arousable, alert and oriented x3. Cranial nerves 2 through 12 are grossly intact. - Labs CBC & Chem 7: 06/07/21 04:53 06/07/21 04:53 Labs: Abnormal Lab Results - Last 24 Hours (Table) 06/06/21 06/06/21 06/06/21 Range/Units 12:00 12:00 12:00 WBC 24.9 H (3.8-10.6) k/uL MCHC 30.6 L (31.0-37.0) g/dL Neutrophils # 21.7 H (1.3-7.7) k/uL VBG pH 6.98 L* (7.31-7.41) VBG pCO2 24 L (37-51) mmHg VBG HCO3 5 L* (24-28) mmol/L Sodium 130 L (137-145) mmol/L Potassium 6.0 H (3.5-5.1) mmol/L Chloride 97 L (98-107) mmol/L Carbon Dioxide <5 L* (22-30) mmol/L BUN 36 H (9-20) mg/dL Creatinine 1.56 H (0.66-1.25) mg/dL Glucose 533 H* (74-99) mg/dL POC Glucose (mg/dL) (75-99) mg/dL AST (17-59) U/L Total Protein (6.3-8.2) g/dL Albumin (3.5-5.0) g/dL Urine Protein (Negative) Urine Glucose (UA) (Negative) Urine Ketones (Negative) Urine Blood (Negative) Urine Bacteria (None) /hpf Hyaline Casts (0-2) /lpf Urine Mucus (None) /hpf 06/06/21 06/06/21 06/06/21 Range/Units 14:17 14:18 15:12 WBC (3.8-10.6) k/uL MCHC (31.0-37.0) g/dL Neutrophils # (1.3-7.7) k/uL VBG pH (7.31-7.41) VBG pCO2 (37-51) mmHg VBG HCO3 (24-28) mmol/L Sodium (137-145) mmol/L Potassium (3.5-5.1) mmol/L Chloride (98-107) mmol/L Carbon Dioxide (22-30) mmol/L BUN (9-20) mg/dL Creatinine (0.66-1.25) mg/dL Glucose (74-99) mg/dL POC Glucose (mg/dL) 335 H 266 H (75-99) mg/dL AST (17-59) U/L Total Protein (6.3-8.2) g/dL Albumin (3.5-5.0) g/dL Urine Protein Trace H (Negative) Urine Glucose (UA) 4+ H (Negative) Urine Ketones 4+ H (Negative) Urine Blood Trace H (Negative) Urine Bacteria Rare H (None) /hpf Hyaline Casts 3 H (0-2) /lpf Urine Mucus Rare H (None) /hpf 06/06/21 06/06/21 06/06/21 Range/Units 16:16 16:23 16:55 WBC (3.8-10.6) k/uL MCHC (31.0-37.0) g/dL Neutrophils # (1.3-7.7) k/uL VBG pH (7.31-7.41) VBG pCO2 (37-51) mmHg VBG HCO3 (24-28) mmol/L Sodium 136 L (137-145) mmol/L Potassium (3.5-5.1) mmol/L Chloride 109 H (98-107) mmol/L Carbon Dioxide 7 L* (22-30) mmol/L BUN 24 H (9-20) mg/dL Creatinine (0.66-1.25) mg/dL Glucose 206 H (74-99) mg/dL POC Glucose (mg/dL) 243 H 178 H (75-99) mg/dL AST (17-59) U/L Total Protein (6.3-8.2) g/dL Albumin (3.5-5.0) g/dL Urine Protein (Negative) Urine Glucose (UA) (Negative) Urine Ketones (Negative) Urine Blood (Negative) Urine Bacteria (None) /hpf Hyaline Casts (0-2) /lpf Urine Mucus (None) /hpf 06/06/21 06/06/21 06/06/21 Range/Units 18:09 19:12 19:45 WBC (3.8-10.6) k/uL MCHC (31.0-37.0) g/dL Neutrophils # (1.3-7.7) k/uL VBG pH (7.31-7.41) VBG pCO2 (37-51) mmHg VBG HCO3 (24-28) mmol/L Sodium (137-145) mmol/L Potassium (3.5-5.1) mmol/L Chloride (98-107) mmol/L Carbon Dioxide (22-30) mmol/L BUN (9-20) mg/dL Creatinine (0.66-1.25) mg/dL Glucose (74-99) mg/dL POC Glucose (mg/dL) 159 H 136 H 125 H (75-99) mg/dL AST (17-59) U/L Total Protein (6.3-8.2) g/dL Albumin (3.5-5.0) g/dL Urine Protein (Negative) Urine Glucose (UA) (Negative) Urine Ketones (Negative) Urine Blood (Negative) Urine Bacteria (None) /hpf Hyaline Casts (0-2) /lpf Urine Mucus (None) /hpf 06/06/21 06/06/21 06/06/21 Range/Units 19:49 20:08 21:08 WBC (3.8-10.6) k/uL MCHC (31.0-37.0) g/dL Neutrophils # (1.3-7.7) k/uL VBG pH (7.31-7.41) VBG pCO2 (37-51) mmHg VBG HCO3 (24-28) mmol/L Sodium 135 L (137-145) mmol/L Potassium (3.5-5.1) mmol/L Chloride 110 H (98-107) mmol/L Carbon Dioxide 12 L (22-30) mmol/L BUN (9-20) mg/dL Creatinine (0.66-1.25) mg/dL Glucose 137 H (74-99) mg/dL POC Glucose (mg/dL) 203 H 166 H (75-99) mg/dL AST (17-59) U/L Total Protein (6.3-8.2) g/dL Albumin (3.5-5.0) g/dL Urine Protein (Negative) Urine Glucose (UA) (Negative) Urine Ketones (Negative) Urine Blood (Negative) Urine Bacteria (None) /hpf Hyaline Casts (0-2) /lpf Urine Mucus (None) /hpf 06/06/21 06/06/21 06/07/21 Range/Units 22:19 23:07 00:03 WBC (3.8-10.6) k/uL MCHC (31.0-37.0) g/dL Neutrophils # (1.3-7.7) k/uL VBG pH (7.31-7.41) VBG pCO2 (37-51) mmHg VBG HCO3 (24-28) mmol/L Sodium (137-145) mmol/L Potassium (3.5-5.1) mmol/L Chloride (98-107) mmol/L Carbon Dioxide (22-30) mmol/L BUN (9-20) mg/dL Creatinine (0.66-1.25) mg/dL Glucose (74-99) mg/dL POC Glucose (mg/dL) 191 H 208 H 213 H (75-99) mg/dL AST (17-59) U/L Total Protein (6.3-8.2) g/dL Albumin (3.5-5.0) g/dL Urine Protein (Negative) Urine Glucose (UA) (Negative) Urine Ketones (Negative) Urine Blood (Negative) Urine Bacteria (None) /hpf Hyaline Casts (0-2) /lpf Urine Mucus (None) /hpf 06/07/21 06/07/21 06/07/21 Range/Units 02:00 03:03 04:03 WBC (3.8-10.6) k/uL MCHC (31.0-37.0) g/dL Neutrophils # (1.3-7.7) k/uL VBG pH (7.31-7.41) VBG pCO2 (37-51) mmHg VBG HCO3 (24-28) mmol/L Sodium (137-145) mmol/L Potassium (3.5-5.1) mmol/L Chloride (98-107) mmol/L Carbon Dioxide (22-30) mmol/L BUN (9-20) mg/dL Creatinine (0.66-1.25) mg/dL Glucose (74-99) mg/dL POC Glucose (mg/dL) 260 H 198 H 270 H (75-99) mg/dL AST (17-59) U/L Total Protein (6.3-8.2) g/dL Albumin (3.5-5.0) g/dL Urine Protein (Negative) Urine Glucose (UA) (Negative) Urine Ketones (Negative) Urine Blood (Negative) Urine Bacteria (None) /hpf Hyaline Casts (0-2) /lpf Urine Mucus (None) /hpf 06/07/21 06/07/21 06/07/21 Range/Units 04:53 04:53 04:57 WBC 14.1 H (3.8-10.6) k/uL MCHC (31.0-37.0) g/dL Neutrophils # 11.0 H (1.3-7.7) k/uL VBG pH (7.31-7.41) VBG pCO2 (37-51) mmHg VBG HCO3 (24-28) mmol/L Sodium 131 L (137-145) mmol/L Potassium (3.5-5.1) mmol/L Chloride (98-107) mmol/L Carbon Dioxide 17 L (22-30) mmol/L BUN (9-20) mg/dL Creatinine 0.52 L (0.66-1.25) mg/dL Glucose 260 H (74-99) mg/dL POC Glucose (mg/dL) 249 H (75-99) mg/dL AST 16 L (17-59) U/L Total Protein 5.8 L (6.3-8.2) g/dL Albumin 3.2 L (3.5-5.0) g/dL Urine Protein (Negative) Urine Glucose (UA) (Negative) Urine Ketones (Negative) Urine Blood (Negative) Urine Bacteria (None) /hpf Hyaline Casts (0-2) /lpf Urine Mucus (None) /hpf 06/07/21 06/07/21 06/07/21 Range/Units 06:18 07:12 08:04 WBC (3.8-10.6) k/uL MCHC (31.0-37.0) g/dL Neutrophils # (1.3-7.7) k/uL VBG pH (7.31-7.41) VBG pCO2 (37-51) mmHg VBG HCO3 (24-28) mmol/L Sodium (137-145) mmol/L Potassium (3.5-5.1) mmol/L Chloride (98-107) mmol/L Carbon Dioxide (22-30) mmol/L BUN (9-20) mg/dL Creatinine (0.66-1.25) mg/dL Glucose (74-99) mg/dL POC Glucose (mg/dL) 311 H 177 H 246 H (75-99) mg/dL AST (17-59) U/L Total Protein (6.3-8.2) g/dL Albumin (3.5-5.0) g/dL Urine Protein (Negative) Urine Glucose (UA) (Negative) Urine Ketones (Negative) Urine Blood (Negative) Urine Bacteria (None) /hpf Hyaline Casts (0-2) /lpf Urine Mucus (None) /hpf 06/07/21 06/07/21 06/07/21 Range/Units 09:05 11:20 11:28 WBC (3.8-10.6) k/uL MCHC (31.0-37.0) g/dL Neutrophils # (1.3-7.7) k/uL VBG pH (7.31-7.41) VBG pCO2 (37-51) mmHg VBG HCO3 (24-28) mmol/L Sodium (137-145) mmol/L Potassium (3.5-5.1) mmol/L Chloride (98-107) mmol/L Carbon Dioxide (22-30) mmol/L BUN (9-20) mg/dL Creatinine (0.66-1.25) mg/dL Glucose (74-99) mg/dL POC Glucose (mg/dL) 219 H 219 H 194 H (75-99) mg/dL AST (17-59) U/L Total Protein (6.3-8.2) g/dL Albumin (3.5-5.0) g/dL Urine Protein (Negative) Urine Glucose (UA) (Negative) Urine Ketones (Negative) Urine Blood (Negative) Urine Bacteria (None) /hpf Hyaline Casts (0-2) /lpf Urine Mucus (None) /hpf Assessment and Plan Assessment: Acute diabetic ketoacidosis with uncontrolled diabetes mellitus, type I, present on admission Change in mental status acute metabolic encephalopathy secondary to acute diabetic ketoacidosis Acute metabolic acidosis secondary to diabetic ketoacidosis Hyponatremia hyperkalemia acute renal failure with acute tubular necrosis, prerenal acute renal failure secondary to dehydration Elevated white blood count, rule out sepsis or infection History of ADD and ADHD History of noncompliance history of continued nicotine dependence Anxiety, bipolar depression History of marijuana history of meth and heroin Full code Recommendations and discussion: Comment continue with close monitoring and sliding scale along with long acting and will continue to monitor Accu-Cheks closely per ICU protocol. Patient is more awake and alert although continues to be lethargic and states he has continued abdominal pain. Patient is having continued intermittent nausea with abdominal tenderness but is tolerating diet. States he is not eating very much and instructed the patient to continue to encourage oral intake and increase activity as tolerated. Patient states he does follow with Dr. Martinez outpatient and reports to being noncompliant with medications and diet. Due to multiple complex medical issues, prognosis is guarded. Further recommendations to follow.
[2021-06-07 16:50] LABS: Glucose,Whole Blood 327 mg/dL (75-99)
[2021-06-07] MEDS: PANTOPRAZOLE 40 MG TABLET PO SCH (17:36)
[2021-06-07 20:10] LABS: Glucose,Whole Blood 352 mg/dL (75-99)
[2021-06-07] MEDS ORDERED: INSULIN ASPART (NovoLOG) 100 UNIT/ML VIAL SQ ONE (20:23)
[2021-06-08] MEDS: SODIUM CHLORIDE 0.9% 1,000 ML IV SCH ×2 (00:29→12:56)
[2021-06-08 01:10] LABS: Glucose,Whole Blood 248 mg/dL (75-99)
[2021-06-08 06:50] LABS: Glucose,Whole Blood 386 mg/dL (75-99)
[2021-06-08] MEDS ORDERED: INSULIN DETEMIR (LEVEMIR) 100 UNIT/ML SYR SQ SCH (07:00)
[2021-06-08] MEDS: INSULIN ASPART (NovoLOG) 100 UNIT/ML VIAL SQ SCH ×4 (07:31→21:12)
[2021-06-08] MEDS: HEPARIN SODIUM,PORCINE/PF 5,000 UNIT/0.5 ML SYRINGE SQ SCH ×2 (07:32→19:28)
[2021-06-08] MEDS: PANTOPRAZOLE 40 MG TABLET PO SCH (07:32)
[2021-06-08] MEDS ORDERED: HYDROmorphone 0.5 MG/0.5 ML SYRINGE IVP PRN (11:26)
[2021-06-08] MEDS: HYDROcodone/APAP 5-325MG 1 EACH TAB PO PRN ×2 (11:31→19:27)
[2021-06-08 11:41] LABS: Glucose,Whole Blood 345 mg/dL (75-99)
--- NOTE | 2021-06-08 12:00 | XR ---
EXAMINATION TYPE: XR chest 1V portable DATE OF EXAM: 06/08/2021 COMPARISON: 06/07/2021 INDICATION: Chest pain TECHNIQUE: Single frontal view of the chest is obtained. FINDINGS: The heart size is normal. The pulmonary vasculature is normal. The lungs are clear. IMPRESSION: 1. No acute pulmonary process.
[2021-06-08] MEDS ORDERED: PANTOPRAZOLE 40 MG TABLET PO SCH (16:00)
[2021-06-08 16:27] LABS: Glucose,Whole Blood 299 mg/dL (75-99)
[2021-06-08] MEDS: PANTOPRAZOLE 40 MG/10 ML VIAL IVP SCH (19:28)
[2021-06-08 20:44] LABS: Glucose,Whole Blood 292 mg/dL (75-99)
[2021-06-08] MEDS: INSULIN DETEMIR (LEVEMIR) 100 UNIT/ML SYR SQ SCH (21:12)
--- NOTE | 2021-06-08 21:20 | PN ---
PROGRESS NOTE DATE OF SERVICE: 06/08/2021 This 26-year-old gentleman admitted with acute diabetic ketoacidosis also complaints of chest pain. No fever. No cough. The troponins are negative. EKG did not show acute abnormality. Chest CT also showed no abnormality. Chest pain is felt in the anterior part of the lower chest. Pressure type of pain, according to him. PHYSICAL EXAMINATION: Alert, attentive. Pulse 85. Blood pressure 118/70, respiration 18, temperature 97.8, pulse ox 98% on room air. CARDIOVASCULAR: S1, S2 muffled. RESPIRATORY SYSTEM: Breath sounds diminished at the bases, scattered rhonchi and crackles. ABDOMEN: Soft, nontender. LEGS: No swelling, no edema. NERVOUS: Nonfocal. LAB STUDIES: WBC 14.1, blood sugars are noted. ASSESSMENT: 1. Acute diabetic ketoacidosis, . Diabetes mellitus, type 1 with hypoglycemia present on admission. 2. Chest pain for evaluation, rule out coronary artery disease. 3. Change in mental status, acute metabolic encephalopathy secondary to acute diabetic ketoacidosis. 4. Acute metabolic acidosis, secondary to diabetic ketoacidosis. 5. Hyponatremia. 6. Hyperkalemia. 7. Acute renal failure with acute tubular necrosis, prerenal. Acute renal failure secondary to dehydration. 8. Elevated WBC, rule out sepsis or infection. 9. History of ADD/ADHD. 10.History of noncompliance. 11.History of continued nicotine dependence. 12.Anxiety, bipolar depression. 13.History of marijuana. 14.History of meth and heroin. 15.FULL CODE. RECOMMENDATIONS AND DISCUSSION: Recommend to continue current management and treatment, otherwise at this time, repeat labs. Monitor blood sugars closely. Guarded prognosis because of multiple complex medical issues and cardiology consultation. I would increase the dose of Lantus and further recommendations to follow. Increase Lantus to 30 units subcutaneously b.i.d. MMODL / IJN: [id number] / MTDD
[2021-06-09] MEDS: SODIUM CHLORIDE 0.9% 1,000 ML IV SCH ×3 (01:27→22:36)
[2021-06-09] MEDS: HYDROcodone/APAP 5-325MG 1 EACH TAB PO PRN ×3 (02:32→21:04)
[2021-06-09 05:27] LABS: Glucose,Whole Blood 78 mg/dL (75-99)
[2021-06-09 06:52] LABS: Glucose,Whole Blood 95 mg/dL (75-99)
[2021-06-09] MEDS: INSULIN DETEMIR (LEVEMIR) 100 UNIT/ML SYR SQ SCH ×3 (07:04→21:03)
[2021-06-09] MEDS: HEPARIN SODIUM,PORCINE/PF 5,000 UNIT/0.5 ML SYRINGE SQ SCH ×2 (07:05→21:04)
[2021-06-09] MEDS: INSULIN ASPART (NovoLOG) 100 UNIT/ML VIAL SQ SCH ×4 (07:05→21:04)
[2021-06-09] MEDS: PANTOPRAZOLE 40 MG/10 ML VIAL IVP SCH ×2 (07:07→21:04)
[2021-06-09 11:50] LABS: Glucose,Whole Blood 159 mg/dL (75-99)
[2021-06-09 11:59] LABS: Chol/HDL Ratio 7.62
[2021-06-09 17:16] LABS: Glucose,Whole Blood 406 mg/dL (75-99)
[2021-06-09 20:41] LABS: Glucose,Whole Blood 319 mg/dL (75-99)
--- NOTE | 2021-06-09 21:37 | PN ---
PROGRESS NOTE DATE OF SERVICE: 06/09/2021 This 26-year-old gentleman who was admitted with acute diabetic ketoacidosis is improving significantly. The patient is complaining of tiredness, weakness. The patient might require twice daily insulin, which the patient is able to comply with, according to him. No chest pain. No palpitations. No fever. PHYSICAL EXAMINATION: Alert and oriented x3, pulse 118, blood pressure 140/84, respiration 14, temperature 97.4, pulse ox 98% on room air. HEENT: Conjunctivae normal. CARDIAC: Murmur. RESPIRATION: Breath sounds diminished at the bases, bilateral scattered rhonchi and crackles. ABDOMEN: Soft, nervous stomach. LABS: Accu-Cheks 352 and 292. ASSESSMENT: 1. Acute diabetic ketoacidosis, diabetes mellitus type 1, uncontrolled with hyperglycemia, present on admission. 2. Chest pain for evaluation, rule out coronary artery disease. 3. Change in mental status, acute metabolic encephalopathy, secondary to acute diabetic ketoacidosis. 4. Acute metabolic acidosis, secondary to diabetic ketoacidosis. 5. Hyponatremia. 6. Hyperkalemia. 7. Acute renal failure with acute tubular necrosis present on admission, secondary to dehydration. 8. Elevated WBC possibly sepsis on infection. 9. History ADD/ADHD. 10.History of noncompliance. 11.History of continued nicotine dependence. 12.Anxiety, bipolar depression. 13.History of marijuana. 14.History of meth and heroin. 15.FULL CODE. RECOMMENDATIONS AND DISCUSSION: To continue current management and treatment, monitor blood sugars closely. Guarded prognosis because of multiple complex medical issues and further recommendations to follow. MMODL / IJN: [id number] /
[2021-06-10 01:45] LABS: Glucose,Whole Blood 244 mg/dL (75-99)
[2021-06-10 07:11] LABS: Glucose,Whole Blood 155 mg/dL (75-99)
[2021-06-10] MEDS: HEPARIN SODIUM,PORCINE/PF 5,000 UNIT/0.5 ML SYRINGE SQ SCH (08:06)
[2021-06-10] MEDS: INSULIN ASPART (NovoLOG) 100 UNIT/ML VIAL SQ SCH ×2 (08:06→12:15)
[2021-06-10] MEDS: INSULIN DETEMIR (LEVEMIR) 100 UNIT/ML SYR SQ SCH (08:06)
[2021-06-10] MEDS: PANTOPRAZOLE 40 MG/10 ML VIAL IVP SCH (08:07)
[2021-06-10 08:28] VITALS: RESP 18; TEMP 97.5
[2021-06-10] MEDS ORDERED: NICOTINE 7MG/24HR PATCH TRANSDERM SCH (09:00)
[2021-06-10] MEDS ORDERED: ATORVASTATIN 20 MG TAB PO SCH (09:15)
[2021-06-10] MEDS ORDERED: lisinopriL 5 MG TAB PO SCH (09:15)
[2021-06-10 09:58] LABS: African American GFR (CKD) >90 (>60 ml/min/1.73 sqM); Anion Gap 8 mmol/L; Blood Urea Nitrogen 14 mg/dL (9-20); Calcium 9.7 mg/dL (8.4-10.2); Carbon Dioxide 31 mmol/L (22-30); Chloride 97 mmol/L (98-107); Glucose 273 mg/dL (74-99); Non-African American GFR(CKD) >90 (>60 ml/min/1.73 sqM); Potassium 4.1 mmol/L (3.5-5.1); Sodium 136 mmol/L (137-145)
[2021-06-10 11:55] LABS: Glucose,Whole Blood 205 mg/dL (75-99)
[2021-06-10 13:13] VITALS: BP 131/94; PULSE 125
--- NOTE | 2021-06-10 13:13 | P.CRDCN ---
History of Present Illness History of present illness: HISTORY OF PRESENTING ILLNESS This is a pleasant 26-year-old male use past medical history significant for diabetes mellitus, chronic nicotine dependence and history of illicit drug. 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 We have been asked to see in consultation for chest pain. He is currently being treated for DKA and has had some nausea/vomiting. He states yesterday after vomiting he started having pain on the right anterior chest wall. The pain is exacerbated when he vomits and sometimes when he moves his arm or torso. No real radiation. No shortness of breath, dizziness or palpitations. DIAGNOSTICS EKG reveals sinus mechanism with no acute ST or T wave abnormalities noted. Chest xray negative 3. Laboratory reviewed, sodium 136, potassium 4.1, creatinine 0.58, troponins negative 2. He takes no daily cardiac medications REVIEW OF SYSTEMS At the time of my exam: CONSTITUTIONAL: Denies fever or chills. CARDIOVASCULAR: Denies chest pain, shortness of breath, orthopnea, PND or palpitations. RESPIRATORY: Denies cough. GASTROINTESTINAL: Denies abdominal pain, diarrhea, constipation, nausea or vomiting. MUSCULOSKELETAL: Denies myalgias. NEUROLOGIC: Denies numbness, tingling, headacbe or weakness. ENDOCRINE: Denies fatigue, weight change, polydipsia or polyurina. GENITOURINARY: Denies burning, hematuria or urgency with micturation. HEMATOLOGIC: Denies history of anemia or bleeding. PHYSICAL EXAMINATION Blood pressure 142/100 heart rate 107 afebrile and maintaining oxygen saturation on room air. CONSTITUTIONAL: No apparent distress. HEENT: Head is normocephalic. Pupils are equal, round. Sclerae anicteric. Mucous membranes of the mouth are moist. No JVD. No carotid bruit. CHEST EXAMINATION: Lungs are clear to auscultation. No chest wall tenderness is noted on palpation or with deep breathing. HEART EXAMINATION: Regular rate and rhythm. S1, S2 heard. No murmurs, gallops or rub. ABDOMEN: Soft, nontender. Positive bowel sounds. EXTREMITIES: 2+ peripheral pulses, no lower extremity edema and no calf tenderness. NEUROLOGIC EXAMINATION: Patient is awake, alert and oriented x3. ASSESSMENT Chest pain, musculoskeletal Diabetes mellitus Hypertension PLAN An acute coronary event has been ruled out. Pain is atypical for angina likely related to musculoskeletal injury from persistent vomiting. Echocardiogram has been obtained and will be reviewed. Overall the patient is stable from a cardiac perspective. We can pursue outpatient stress testing once his DKA has improved. Given his history of diabetes mellitus and hypertension who recommended initiation of MURALI inhibitor and statin. Follow-up in the office with Dr. Jean upon discharge. Thank you kindly for this consultation. Nurse Practitioner note has been reviewed, I agree with a documented findings and plan of care. Patient was seen and examined. Past Medical History Past Medical History: Diabetes Mellitus History of Any Multi-Drug Resistant Organisms: None Reported Past Surgical History: Orthopedic Surgery Past Anesthesia/Blood Transfusion Reactions: No Reported Reaction Smoking Status: Current some day smoker Medications and Allergies Home Medications Medication Instructions Recorded Confirmed Type Insulin Lispro [humaLOG Kwikpen] See Protocol SQ AC-TID 06/06/21 06/06/21 History Insulin Glargine,Hum.rec.anlog 30 unit SQ BID #60 pen 06/09/21 Rx [Lantus Solostar] Pantoprazole Sodium [Protonix] 40 mg PO DAILY #30 tablet. 06/09/21 Rx Atorvastatin [Lipitor] 20 mg PO DAILY #30 tab 06/10/21 Rx Nicotine 7Mg/24Hr Patch [Habitrol] 1 patch TRANSDERM DAILY #10 patch 06/10/21 Rx lisinopriL [Zestril] 5 mg PO DAILY #30 tab 06/10/21 Rx Allergies Allergy/AdvReac Type Severity Reaction Status Date / Time No Known Allergies Allergy Verified 06/06/21 13:33 Physical Exam Vitals: Vital Signs Temp Pulse Resp BP Pulse Ox 06/10/21 10:03 130 H 142/100 06/10/21 08:00 97.5 F L 107 H 18 172/102 100 06/10/21 00:56 98.0 F 91 14 148/88 100 06/09/21 19:07 97.4 F L 118 H 14 142/84 99 06/09/21 19:05 83 16 06/09/21 14:00 97.9 F 83 16 126/64 98 Intake and Output 06/09/21 06/10/21 06/10/21 22:59 06:59 14:59 Intake Total 480 240 Balance 480 240 Intake: Oral 480 240 Other: Voiding Method Urinal # Voids 3 Results 06/07/21 04:53 06/10/21 09:23 Cardiac Enzymes 06/10/21 Range/Units 09:23 Troponin I <0.012 (0.000-0.034) ng/mL Comprehensive Metabolic Panel 06/10/21 Range/Units 09:23 Sodium 136 L (137-145) mmol/L Potassium 4.1 (3.5-5.1) mmol/L Chloride 97 L (98-107) mmol/L Carbon Dioxide 31 H (22-30) mmol/L BUN 14 (9-20) mg/dL Creatinine 0.58 L (0.66-1.25) mg/dL Glucose 273 H (74-99) mg/dL Calcium 9.7 (8.4-10.2) mg/dL Current Medications Generic Name Dose Route Start Last Admin Trade Name Freq PRN Reason Stop Dose Admin Hydrocodone Bitart/Acetaminophen 1 each 06/08/21 11:26 06/09/21 21:04 Hydrocodone/Apap 5-325mg 1 Each Tab PO 1 each Q6HR PRN Administration Pain Atorvastatin Calcium 20 mg 06/10/21 09:15 06/10/21 10:00 Atorvastatin 20 Mg Tab PO 20 mg DAILY REGINA Administration Heparin Sodium (Porcine) 5,000 unit 06/06/21 21:00 06/10/21 08:06 Heparin Sodium,Porcine/Pf 5,000 Unit/0.5 Ml Syringe SQ 5,000 unit Q12HR REGINA Administration Hydromorphone HCl 0.5 mg 06/08/21 11:26 Hydromorphone 0.5 Mg/0.5 Ml Syringe IVP Q6HR PRN Pain Sodium Chloride 1,000 mls @ 2,000 mls/hr 06/06/21 12:39 06/06/21 12:49 Saline 0.9% IV 2,000 mls/hr .Q30M ONE Administration Sodium Chloride 1,000 mls @ 75 mls/hr 06/07/21 09:45 06/09/21 22:36 Saline 0.9% IV Not Given .[id number] REGINA Insulin Aspart 0 unit 06/07/21 12:30 06/10/21 12:15 Insulin Aspart (Novolog) 100 Unit/Ml Vial SQ 2 unit ACHS REGINA Administration Protocol Insulin Detemir 30 unit 06/08/21 21:00 06/10/21 08:06 Insulin Detemir (Levemir) 100 Unit/Ml Syr SQ 30 unit BID REGINA Administration Lisinopril 5 mg 06/10/21 09:15 06/10/21 10:00 Lisinopril 5 Mg Tab PO 5 mg DAILY REGINA Administration Miscellaneous Information 1 each 06/06/21 12:39 Magnesium Replacement Protocol 1 Each Misc MISCELLANE DAILY PRN Per Protocol Protocol Miscellaneous Information 1 each 06/06/21 12:39 Potassium Replacement Protocol 1 Each Misc MISCELLANE DAILY PRN Per Protocol Nicotine 1 patch 06/10/21 09:00 06/10/21 08:38 Nicotine 7mg/24hr Patch TRANSDERM 1 patch DAILY REGINA Administration Pantoprazole Sodium 40 mg 06/08/21 21:00 06/10/21 08:07 Pantoprazole 40 Mg/10 Ml Vial IVP 40 mg BID REGINA Administration Intake and Output 06/09/21 06/10/21 06/10/21 22:59 06:59 14:59 Intake Total 480 240 Balance 480 240 Intake: Oral 480 240 Other: Voiding Method Urinal # Voids 3 06/07/21 04:53 06/10/21 09:23
--- NOTE | 2021-06-10 18:00 | ECHOF ---
Referral Reason:CP MEASUREMENTS -------- HEIGHT: 172.7 cm WEIGHT: 59.0 kg BP: RVIDd: 2.9 cm (< 3.3) IVSd: 1.0 cm (0.6 - 1.1) LVIDd: 4.9 cm (3.9 - 5.3) LVPWd: 1.0 cm (0.6 - 1.1) IVSs: 1.3 cm LVIDs: 3.3 cm LVPWs: 1.6 cm LA Diam: 3.5 cm (2.7 - 3.8) Ao Diam: 3.1 cm (2.0 - 3.7) AV Cusp: 2.0 cm (1.5 - 2.6) MV EXCURSION: 24.642 mm (> 18.000) MV EF SLOPE: 135 mm/s (70 - 150) EPSS: 0.3 cm MV E Denys: 0.69 m/s MV DecT: 120 ms MV A Denys: 0.57 m/s MV E/A Ratio: 1.23 RAP: 5.00 mmHg FINDINGS -------- Sinus rhythm. This was a technically good study. LV size, wall thickness and systolic function are normal, with an EF greater than 55%. The left len tricular size is normal. The right ventricle is normal in size. The left atrial size is normal. The right atrial size is normal. The aortic valve is trileaflet, and appears structurally normal. No aortic stenosis or regurgitation. There is trace to mild mitral regurgitation. Mild tricuspid regurgitation present. Right ventricular systolic pressure is normal at < 35 mmHg. There is no pulmonic regurgitation present. The aortic root size is normal. There is no pericardial effusion. CONCLUSIONS -------- 1. LV size, wall thickness and systolic function are normal, with an EF greater than 55%. 2. The left ventricular size is normal. 3. The right ventricle is normal in size. 4. The left atrial size is normal. 5. The right atrial size is normal. 6. The aortic valve is trileaflet, and appears structurally normal. No aortic stenosis or regurgitati on. 7. There is trace to mild mitral regurgitation. 8. Mild tricuspid regurgitation present. 9. The aortic root size is normal. 10. There is no pericardial effusion. SIGNALS COLLECTION TECHNICIAN: Mally Ward RDCS
--- NOTE | 2021-06-11 14:56 | P.DS ---
Providers Date of admission: 06/06/21 13:56 Expected date of discharge: 06/10/21 Attending physician: Valente Ervin Consults: 06/06/21 14:47 Consult Physician Stat Consulting Provider: Hilda Bailey Consult Reason/Comments: VO DKA Do you want consulting provider notified?: Yes 06/09/21 09:04 Consult Physician Routine Consulting Provider: Jorge Lopez Consult Reason/Comments: chest pain Do you want consulting provider notified?: Yes Primary care physician: Stated None Hospital Course: Final diagnosis Acute diabetic ketoacidosis with uncontrolled with hyperglycemia diabetes mellitus, type I, present on admission Chest pain for evaluation, ruled out coronary artery disease Change in mental status acute metabolic encephalopathy secondary to acute diabetic ketoacidosis Acute metabolic acidosis secondary to diabetic ketoacidosis Hyponatremia hyperkalemia acute renal failure with acute tubular necrosis, prerenal acute renal failure secondary to dehydration Elevated white blood count, possibly sepsis or infection History of ADD and ADHD History of noncompliance history of continued nicotine dependence Anxiety, bipolar depression History of marijuana history of meth and heroin Full code Discharge disposition Patient is being discharged in a stable condition with guarded prognosis to home. Patient will follow-up with Dr. Wilkerson in the outpatient setting upon discharge. Patient is to follow up with Dr Martinez endocrine as well as cardiology.. Total time taken is greater than 35 minutes. Hospital course This is a 26-year-old male who was recently admitted with diabetic ketoacidosis and is being closely monitored. Patient continues to be in the ICU and was recently transitioned from insulin drip to sliding scale and long-acting and will continue to monitor closely. Continues to have some abdominal discomfort and not eating as he states he continues to have some nausea. Patient is lethargic although responding and is alert 3. Patient states he was just recently diagnosed with diabetes in December of this year and follows with Dr. Martinez. Patient has been noncompliant with medications over the last few weeks as he wasn't feeling very well. Patient currently denies any chest pain or palpitations. Patient is afebrile. 06/10/2021 Patient is seen in follow-up this morning with no acute overnight issues. Patient states he had some periods of chest pain and troponins were negative and was sinus tach on the monitor and underwent echo showing LV systolic function is normal with an EF greater than 55% with some trace to mild mitral regurgitation along with mild tricuspid regurgitation present. Patient was reevaluated and seen by cardiology and recommended outpatient follow-up closely and medication compliance. Patient further denied any chest pain and adamant about having to go home today. Patient again instructed to comply with medications and follow- up outpatient with primary care provider and specialists. Patient verbalized understanding. Currently no reports of chest pain, shortness of breath, or palpitations. Patient is afebrile. No reports of nausea or vomiting and patient is tolerating diet. Patient will be discharged home today. Guarded prognosis. On exam vital signs are stable. Cardio S1, S2 are muffled. Respiratory system shows diminished breath sounds at the bases with no wheezing or rhonchi noted. Abdomen is soft nontender. Nervous system shows no focal deficit. Please refer to medication reconciliation sheet for a list of medications. Patient Condition at Discharge: Fair Plan - Discharge Summary Discharge Rx Participant: Yes New Discharge Prescriptions: New Pantoprazole Sodium [Protonix] 40 mg PO DAILY #30 tablet. Atorvastatin [Lipitor] 20 mg PO DAILY #30 tab Nicotine 7Mg/24Hr Patch [Habitrol] 1 patch TRANSDERM DAILY #10 patch lisinopriL [Zestril] 5 mg PO DAILY #30 tab Continue Insulin Lispro [humaLOG Kwikpen] See Protocol SQ AC-TID Changed Insulin Glargine,Hum.rec.anlog [Lantus Solostar] 30 unit SQ BID #60 pen Discharge Medication List Insulin Lispro [humaLOG Kwikpen] See Protocol SQ AC-TID 06/06/21 [History] Insulin Glargine,Hum.rec.anlog [Lantus Solostar] 30 unit SQ BID #60 pen 06/09/21 [Rx] Pantoprazole Sodium [Protonix] 40 mg PO DAILY #30 tablet. 06/09/21 [Rx] Atorvastatin [Lipitor] 20 mg PO DAILY #30 tab 06/10/21 [Rx] Nicotine 7Mg/24Hr Patch [Habitrol] 1 patch TRANSDERM DAILY #10 patch 06/10/21 [Rx] lisinopriL [Zestril] 5 mg PO DAILY #30 tab 06/10/21 [Rx] Follow up Appointment(s)/Referral(s): Kasia Wilkerson MD [STAFF PHYSICIAN] - 07/21/21 3:15 pm (APPOINTMENT WITH NURSE PRACTITIONER) Keny Jean MD [STAFF PHYSICIAN] - 2 Weeks (Pt will recieve a call from Doctors office with date of stress test and follow up appointment ) Ambulatory/Diagnostic Orders: Complete Blood Count w/diff [LAB.AMB] Location: None Selected Patient Instructions/Handouts: Diabetic Ketoacidosis (DC), Hypertension (DC), Tachycardia (GEN) Activity/Diet/Wound Care/Special Instructions: Diet is consistent carb Activity Limited to follow-up Accu-Cheks before meals and at bedtime and results to primary physician and endocrine specialist Continue taking medications as prescribed Follow-up with cardiology in 1-2 weeks Discharge Disposition: HOME SELF-CARE
== END 2021-06-10 14:04 | disposition home or self-care (01) | DRG 637 ==
LOC: EC 12:08 → 2SICU 13:56 → 4SSUR 06-07 21:19
PROVIDERS: ADMIT Hospitalist; ATTEND Hospitalist
DX: E10.10 Type 1 diabetes mellitus with ketoacidosis without coma (principal); G93.41 Metabolic encephalopathy; N17.0 Acute kidney failure with tubular necrosis; F31.30 Bipolar disorder, current episode depressed, mild or moderate severity, unspecified; E87.1 Hypo-osmolality and hyponatremia; F17.200 Nicotine dependence, unspecified, uncomplicated; F90.9 Attention-deficit hyperactivity disorder, unspecified type; E87.5 Hyperkalemia; Z91.19 Patient's noncompliance with other medical treatment and regimen; F41.9 Anxiety disorder, unspecified; D72.829 Elevated white blood cell count, unspecified; Z91.14 Patient's other noncompliance with medication regimen; E10.649 Type 1 diabetes mellitus with hypoglycemia without coma; R07.89 Other chest pain; E86.0 Dehydration; I10 Essential (primary) hypertension; Z79.4 Long term (current) use of insulin; Z79.899 Other long term (current) drug therapy
CPT/HCPCS: 36415; 71045; 80048; 80051; 80053; 80061; 80306; 81001; 82009; 82150; 82565; 82803; 82947; 83690; 83721; 84100; 84484; 84520; 85025; 93005; 93306; 96361; 96374; 96375; 99291

== ENCOUNTER 2023-03-09 18:31 | Emergency (ER) | payer BC, OTHER ==
--- NOTE | 2023-03-09 18:34 | ED ---
General Adult HPI <Tania Choudhury - Last Filed: 03/09/23 18:33> <Astrid Portillo - Last Filed: 03/09/23 21:54> - General Stated complaint: hyperglycemia Time Seen by Provider: 03/09/23 18:33 - History of Present Illness Initial comments: 28-year-old presents the emergency department with a chief complaint of "high blood sugar times weeks. " (Tania Choudhury) Patient is a 28-year-old male with history of type 1 diabetes presenting with concerns for hyperglycemia. Patient states that he knows he has been hyperglycemic for the last 2 weeks, today at work he reported some blurry vision. Patient states that he "does not eat like he should". States that he is compliant with his insulin but because this busy work schedule doesn't need a diabetic currently diet. 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 No abdominal pain, nausea, vomiting, chest pain, difficulty breathing, fever, chills, URI-like symptoms, dysuria, hematuria. (Astrid Portillo) - Related Data Home Medications Medication Instructions Recorded Confirmed Insulin Lispro [humaLOG Kwikpen] See Protocol SQ AC-TID 06/06/21 06/06/21 Previous Rx's Medication Instructions Recorded Insulin Glargine,Hum.rec.anlog 30 unit SQ BID #60 pen 06/09/21 [Lantus Solostar Pen] Pantoprazole Sodium [Protonix] 40 mg PO DAILY #30 tablet. 06/09/21 Atorvastatin [Lipitor] 20 mg PO DAILY #30 tab 06/10/21 Nicotine 7Mg/24Hr Patch [Habitrol] 1 patch TRANSDERM DAILY #10 patch 06/10/21 lisinopriL [Zestril] 5 mg PO DAILY #30 tab 06/10/21 Allergies Allergy/AdvReac Type Severity Reaction Status Date / Time tramadol AdvReac Unknown Verified 03/09/23 19:23 Review of Systems ROS Other: All systems not noted in ROS Statement are negative. <Tania Choudhury - Last Filed: 03/09/23 18:33> ROS Other: All systems not noted in ROS Statement are negative. <Astrid Portillo - Last Filed: 03/09/23 21:54> ROS Statement: Those systems with pertinent positive or pertinent negative responses have been documented in the HPI. Past Medical History Past Medical History: Diabetes Mellitus History of Any Multi-Drug Resistant Organisms: None Reported Past Surgical History: Orthopedic Surgery Past Anesthesia/Blood Transfusion Reactions: No Reported Reaction Smoking Status: Current some day smoker <Tania Choudhury - Last Filed: 03/09/23 18:33> General Exam <Tania Choudhury - Last Filed: 03/09/23 18:33> Limitations: no limitations General appearance: alert, in no apparent distress Head exam: Present: atraumatic, normocephalic, normal inspection Eye exam: Present: normal appearance, EOMI. Absent: periorbital swelling Neck exam: Present: normal inspection, full ROM Respiratory exam: Present: normal lung sounds bilaterally. Absent: respiratory distress, wheezes, rales, rhonchi, stridor Cardiovascular Exam: Present: regular rate, normal rhythm, normal heart sounds. Absent: systolic murmur, diastolic murmur, rubs, gallop, clicks GI/Abdominal exam: Present: soft. Absent: distended, tenderness, guarding, rebound, rigid Neurological exam: Present: alert, oriented X3, CN II-XII intact Psychiatric exam: Present: normal affect, normal mood Skin exam: Present: warm, dry, intact, normal color. Absent: rash <Astrid Portillo - Last Filed: 03/09/23 21:54> - General Exam Comments Initial Comments: Visual Physical Exam Vital signs reviewed General: Well-appearing, nontoxic, no acute distress. Head: Normocephalic, atraumatic Eyes: PERRLA, EOMI ENT: Airway patent Chest: Nonlabored breathing Skin: No visual rash, normal skin tone Neuro: Alert and oriented 3 Musculoskeletal: No gross abnormalities (Tania Choudhury) Course Vital Signs 03/09/23 03/09/23 19:19 20:35 Temperature 98.0 F Pulse Rate 107 H 94 Respiratory 22 17 Rate Blood Pressure 114/79 132/79 O2 Sat by Pulse 97 99 Oximetry Medical Decision Making - Lab Data Result diagrams: 03/09/23 19:32 03/09/23 19:32 <Astrid Portillo - Last Filed: 03/09/23 21:54> - Medical Decision Making Was pt. sent in by a medical professional or institution (Dr., PA, MANAGER HARBOR, urgent care, hospital, or care home...) When possible be specific @ -No Did you speak to anyone other than the patient for history (EMS, parent, family, police, friend...)? What history was obtained from this source @ -No Did you review nursing and triage notes (agree or disagree)? Why? @ -I reviewed and agree with nursing and triage notes Were old charts reviewed (outside hosp., previous admission, EMS record, old EKG, old radiological studies, urgent care reports/EKG's, care home records)? Report findings @ -No old charts were reviewed Differential Diagnosis (chest pain, altered mental status, abdominal pain women, abdominal pain men, vaginal bleeding, weakness, fever, dyspnea, syncope, head ache, dizziness, GI bleed, back pain, seizure, CVA, palpatations, mental health, musculoskeletal)? @ -Differential diagnosis includes hyperglycemia, DKA, this is not an all inclusive last EKG interpreted by me (3pts min.). @ -As above X-rays interpreted by me (1pt min.). @ -None done CT interpreted by me (1pt min.). @ -None done U/S interpreted by me (1pt. min.). @ -None done What testing was considered but not performed or refused? (CT, X-rays, U/S, labs)? Why? @ -None What meds were considered but not given or refused? Why? @ -None Did you discuss the management of the patient with other professionals (professionals i.e. QUINCY Worthy, MANAGER [employer], lab, RT, psych nurse, oncology social worker, jewel oliving machine operator, teacher, administrative officer, manager of case)? Give summary @ -No Was smoking cessation discussed for >3mins.? @ -No Was critical care preformed (if so, how long)? @ -No Were there social determinants of health that impacted care today? How? (Homelessness, low income, unemployed, alcoholism, drug addiction, transportation, low edu. Level, literacy, decrease access to med. care, group home, rehab)? @ -No Was there de-escalation of care discussed even if they declined (Discuss DNR or withdrawal of care, Hospice)? DNR status @ -No What co-morbidities impacted this encounter? (DM, HTN, Smoking, COPD, CAD, Cancer, CVA, ARF, Chemo, Hep., AIDS, mental health diagnosis, sleep apnea, morbid obesity)? @ -None Was patient admitted / discharged? Hospital course, mention meds given and route, prescriptions, significant lab abnormalities, going to OR and other pertinent info. @ -Patient is a 28-year-old male history of type 1 diabetes presenting for concerns of hyperglycemia and blurry vision. Patient believes he has been hyperglycemic for last 2 weeks. Physical examination is unremarkable. Glucose is 452. Urine shows trace ketones, negative acetone, anion gap is 12. Patient is not in DKA, he will receive IV fluids and insulin. On reassessment his glucose was improved to 348, he is continuing to receive fluids and will be discharged home. 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 Follow-up with PCP. Report back to ER with any new or worsening symptoms. Discussed return parameters and answered all questions. Patient conveyed verbal understanding and agreed to the plan. I discussed this case in detail with my attending Dr. Traylor Undiagnosed new problem with uncertain prognosis? @ -No Drug Therapy requiring intensive monitoring for toxicity (Heparin, Nitro, Insulin, Cardizem)? @ -No Were any procedures done? @ -No Diagnosis/symptom? @ -Hyperglycemia Acute, or Chronic, or Acute on Chronic? @ -Acute Uncomplicated (without systemic symptoms) or Complicated (systemic symptoms)? @ -complicated Side effects of treatment? @ -No Exacerbation, Progression, or Severe Exacerbation? @ -No Poses a threat to life or bodily function? How? (Chest pain, [place], [place], pneumonia, PE, COPD, DKA, ARF, appy, cholecystitis, CVA, Diverticulitis, Homicidal, Nancy cidal, threat to staff... and all critical care pts) @ -Yes, unmanaged hyperglycemia in the setting of diabetes conveyed to kidney failure, blindness, [place], CVA, etc. (Astrid Portillo) - Lab Data Lab Results 03/09/23 03/09/23 03/09/23 Range/Units 19:22 19:22 19:32 WBC 8.2 (3.8-10.6) k/uL RBC 4.85 (4.30-5.90) m/uL Hgb 14.6 (13.0-17.5) gm/dL Hct 45.3 (39.0-53.0) % MCV 93.4 (80.0-100.0) fL MCH 30.1 (25.0-35.0) pg MCHC 32.3 (31.0-37.0) g/dL RDW 12.2 (11.5-15.5) % Plt Count 329 (150-450) k/uL MPV 7.5 Neutrophils % 63 % Lymphocytes % 24 % Monocytes % 7 % Eosinophils % 4 % Basophils % 1 % Neutrophils # 5.2 (1.3-7.7) k/uL Lymphocytes # 1.9 (1.0-4.8) k/uL Monocytes # 0.6 (0-1.0) k/uL Eosinophils # 0.3 (0-0.7) k/uL Basophils # 0.1 (0-0.2) k/uL Sodium (137-145) mmol/L Potassium (3.5-5.1) mmol/L Chloride (98-107) mmol/L Carbon Dioxide (22-30) mmol/L Anion Gap mmol/L BUN (9-20) mg/dL Creatinine (0.66-1.25) mg/dL Est GFR (CKD-EPI)AfAm (>60 ml/min/1.73 sqM) Est GFR (CKD-EPI)NonAf (>60 ml/min/1.73 sqM) Glucose (74-99) mg/dL POC Glucose (mg/dL) 452 H (70-110) mg/dL POC Glu [employer] Residential Service Technician ID Thony Reyes Calcium (8.4-10.2) mg/dL Urine Color Urine Appearance (Clear) Urine pH (5.0-8.0) Ur Specific [place] (1.001-1.035) Urine Protein (Negative) Urine Glucose (UA) (Negative) Urine Ketones (Negative) Urine Blood (Negative) Urine Nitrite (Negative) Urine Bilirubin (Negative) Urine Urobilinogen (<2.0) mg/dL Ur Leukocyte Esterase (Negative) Acetone, Qual Negative (Negative) 03/09/23 03/09/23 03/09/23 Range/Units 19:32 20:00 21:25 WBC (3.8-10.6) k/uL RBC (4.30-5.90) m/uL Hgb (13.0-17.5) gm/dL Hct (39.0-53.0) % MCV (80.0-100.0) fL MCH (25.0-35.0) pg MCHC (31.0-37.0) g/dL RDW (11.5-15.5) % Plt Count (150-450) k/uL MPV Neutrophils % % Lymphocytes % % Monocytes % % Eosinophils % % Basophils % % Neutrophils # (1.3-7.7) k/uL Lymphocytes # (1.0-4.8) k/uL Monocytes # (0-1.0) k/uL Eosinophils # (0-0.7) k/uL Basophils # (0-0.2) k/uL Sodium 128 L (137-145) mmol/L Potassium 4.7 (3.5-5.1) mmol/L Chloride 96 L (98-107) mmol/L Carbon Dioxide 20 L (22-30) mmol/L Anion Gap 12 mmol/L BUN 23 H (9-20) mg/dL Creatinine 0.76 (0.66-1.25) mg/dL Est GFR (CKD-EPI)AfAm >90 (>60 ml/min/1.73 sqM) Est GFR (CKD-EPI)NonAf >90 (>60 ml/min/1.73 sqM) Glucose 424 H (74-99) mg/dL POC Glucose (mg/dL) 348 H (70-110) mg/dL POC Glu Hvac Residential Service Technician ID Anne Vila Calcium 9.7 (8.4-10.2) mg/dL Urine Color Light Yellow Urine Appearance Clear (Clear) Urine pH 5.5 (5.0-8.0) Ur Specific [place] 1.039 H (1.001-1.035) Urine Protein Negative (Negative) Urine Glucose (UA) 4+ H (Negative) Urine Ketones Trace H (Negative) Urine Blood Negative (Negative) Urine Nitrite Negative (Negative) Urine Bilirubin Negative (Negative) Urine Urobilinogen <2.0 (<2.0) mg/dL Ur Leukocyte Esterase Negative (Negative) Acetone, Qual (Negative) Disposition <Tania Choudhury - Last Filed: 03/09/23 18:33> Is patient prescribed a controlled substance at d/c from ED?: No Time of Disposition: 21:39 <Astrid Portillo - Last Filed: 03/09/23 21:54> Clinical Impression: Hyperglycemia Disposition: HOME SELF-CARE Condition: Good Instructions (If sedation given, give patient instructions): Diabetic Hy perglycemia (ED) Additional Instructions: Follow-up with PCP. Report back to ER with any new or worsening symptoms. Referrals: Marko Bennett MD [Primary Care Provider] - 1-2 days
[2023-03-09 19:23] VITALS: TEMP 98
[2023-03-09 19:24] LABS: Glucose,Whole Blood 452 mg/dL (70-110)
[2023-03-09 20:06] LABS: Basophils # (A) 0.1 k/uL (0-0.2); Basophils % (A) 1 %; Eosinophils # (A) 0.3 k/uL (0-0.7); Eosinophils % (A) 4 %; HCT 45.3 % (39.0-53.0); HGB 14.6 gm/dL (13.0-17.5); Lymphocytes # (A) 1.9 k/uL (1.0-4.8); Lymphocytes % (A) 24 %; MCH 30.1 pg (25.0-35.0); MCHC 32.3 g/dL (31.0-37.0); MCV 93.4 fL (80.0-100.0); Mean Platelet Volume 7.5; Monocytes # (A) 0.6 k/uL (0-1.0); Monocytes % (A) 7 %; Neutrophils # (A) 5.2 k/uL (1.3-7.7); Neutrophils % (A) 63 %; Platelet Count 329 k/uL (150-450); RBC 4.85 m/uL (4.30-5.90); RDW 12.2 % (11.5-15.5); WBC 8.2 k/uL (3.8-10.6)
[2023-03-09 20:21] LABS: African American GFR (CKD) >90 (>60 ml/min/1.73 sqM); Anion Gap 12 mmol/L; Blood Urea Nitrogen 23 mg/dL (9-20); Calcium 9.7 mg/dL (8.4-10.2); Carbon Dioxide 20 mmol/L (22-30); Chloride 96 mmol/L (98-107); Glucose 424 mg/dL (74-99); Non-African American GFR(CKD) >90 (>60 ml/min/1.73 sqM); Potassium 4.7 mmol/L (3.5-5.1); Sodium 128 mmol/L (137-145)
[2023-03-09 20:36] VITALS: RESP 17
[2023-03-09] MEDS ORDERED: SODIUM CHLORIDE 0.9% 1,000 ML IV ONE ×2 (20:41→21:39)
[2023-03-09] MEDS ORDERED: INSULIN REGULAR 100 UNIT/ML VIAL (IV) IV ONE (20:41)
[2023-03-09 21:03] LABS: Appearance,Urine Clear (Clear); Bilirubin,Urine Negative (Negative); Blood,Urine Negative (Negative); Color,Urine Light Yellow; Glucose,Urine (UA) 4+ (Negative); Ketones,Urine Trace (Negative); Leukocyte Esterase,Urine Negative (Negative); Nitrite,Urine Negative (Negative); PH, Urine 5.5 (5.0-8.0); Protein,Urine Negative (Negative); Specific Gravity,Urine 1.039 (1.001-1.035); Urobilinogen,Urine <2.0 mg/dL (<2.0)
[2023-03-09 21:28] LABS: Glucose,Whole Blood 348 mg/dL (70-110)
[2023-03-09 22:28] VITALS: BP 123/73; PULSE 87
[2023-03-09 22:33] LABS: Glucose,Whole Blood 298 mg/dL (70-110)
== END 2023-03-09 22:35 | disposition home or self-care (01) ==
LOC: EC 18:31
DX: E10.65 Type 1 diabetes mellitus with hyperglycemia (principal); F17.200 Nicotine dependence, unspecified, uncomplicated; Z88.6 Allergy status to analgesic agent
CPT/HCPCS: 36415; 80048; 81003; 82009; 85025; 96360; 99285